=== PATIENT | female | born 1940 | race Caucasian/White ===

== ENCOUNTER → 2023-09-27 07:11 | Outpatient (REF) | payer MEDICARE, OTHER, SELFPAY ==
[2023-09-27 09:58] LABS: Glycohemoglobin (HgbA1c) 8.1 % (4.0-5.6)
[2023-09-27 10:31] LABS: Free T4 1.42 ng/dl (0.78-2.19)
[2023-09-27 10:35] LABS: ALT (SGPT) 26 U/L (0-35); AST (SGOT) 31 U/L (14-36); Albumin 3.9 g/dl (3.5-5.0); Alkaline Phosphatase 115 U/L (38-126); Blood Urea Nitrogen 25 mg/dl (7-17); Calcium 9.7 mg/dl (8.4-10.2); Carbon Dioxide 31 mmol/L (22-30); Chloride 103 mmol/L (98-107); Glucose 128 mg/dl (70-99); HDL Cholesterol 62 mg/dl; LDL Cholesterol, Calculated 76 mg/dl; Potassium 4.8 mmol/L (3.5-5.1); Sodium 138 mmol/L (135-145); Total Bilirubin 0.5 mg/dl (0.2-1.3); Total Cholesterol 149 mg/dl (50-199); Total Protein 6.4 g/dl (6.3-8.2); Triglyceride 57 mg/dl (10-149); Very Low Density Lipoprotein 11 mg/dl (0-30); eGFR > 60.00
[2023-09-27 10:45] LABS: TSH 5.06 uIU/ml (0.47-4.68)
[2023-09-27 11:13] LABS: Microalbumin, Random Urine 1.9 mg/dl (0.6-1.7); Microalbumin/creatinine Ratio 19.1 mg/g
== END ==
LOC: REG 07:11
PROVIDERS: ATTENDING PHYSICIAN Nurse Practitioner Family; FAMILY PHYSICIAN Internal Medicine
DX: E10.9 Type 1 diabetes mellitus without complications (principal)
CPT/HCPCS: 36415; 80053; 80061; 82043; 82570; 83036; 84439; 84443

== ENCOUNTER → 2023-11-25 07:23 | Outpatient (REF) | payer MEDICARE, OTHER, SELFPAY ==
[2023-11-25 09:02] LABS: ALT (SGPT) 23 U/L (0-35); AST (SGOT) 27 U/L (14-36); Albumin 4.2 g/dl (3.5-5.0); Alkaline Phosphatase 100 U/L (38-126); Blood Urea Nitrogen 24 mg/dl (7-17); Calcium 9.7 mg/dl (8.4-10.2); Carbon Dioxide 30 mmol/L (22-30); Chloride 103 mmol/L (98-107); Glucose 152 mg/dl (70-99); HDL Cholesterol 77 mg/dl; LDL Cholesterol, Calculated 64 mg/dl; Potassium 4.2 mmol/L (3.5-5.1); Sodium 137 mmol/L (135-145); Total Bilirubin 0.5 mg/dl (0.2-1.3); Total Cholesterol 151 mg/dl (50-199); Total Protein 6.6 g/dl (6.3-8.2); Triglyceride 54 mg/dl (10-149); Very Low Density Lipoprotein 10 mg/dl (0-30); eGFR > 60.00
[2023-11-25 09:24] LABS: Free T4 1.44 ng/dl (0.78-2.19)
[2023-11-25 09:31] LABS: Glycohemoglobin (HgbA1c) 7.8 % (4.0-5.6)
[2023-11-25 09:38] LABS: TSH 3.13 uIU/ml (0.47-4.68)
[2023-11-25 11:35] LABS: Microalbumin, Random Urine 2.1 mg/dl (0.6-1.7); Microalbumin/creatinine Ratio 18.4 mg/g
== END ==
LOC: REG 07:23
PROVIDERS: ATTENDING PHYSICIAN Internal Medicine Endocrinology, Diabetes & Metabolism; FAMILY PHYSICIAN Nurse Practitioner
DX: E10.9 Type 1 diabetes mellitus without complications (principal); E03.8 Other specified hypothyroidism
CPT/HCPCS: 36415; 80053; 80061; 82043; 82570; 83036; 84439; 84443

== ENCOUNTER → 2024-02-27 07:02 | Outpatient (REF) | payer MEDICARE, OTHER, SELFPAY ==
[2024-02-27 08:14] LABS: ALT (SGPT) 15 U/L (0-35); AST (SGOT) 23 U/L (14-36); Albumin 4.1 g/dl (3.5-5.0); Alkaline Phosphatase 91 U/L (38-126); Blood Urea Nitrogen 24 mg/dl (7-17); Calcium 9.5 mg/dl (8.4-10.2); Carbon Dioxide 30 mmol/L (22-30); Chloride 104 mmol/L (98-107); Glucose 168 mg/dl (70-99); Potassium 4.1 mmol/L (3.5-5.1); Sodium 138 mmol/L (135-145); Total Bilirubin 0.8 mg/dl (0.2-1.3); Total Protein 6.1 g/dl (6.3-8.2); eGFR > 60.00
[2024-02-27 11:12] LABS: Glycohemoglobin (HgbA1c) 7.7 % (4.0-5.6)
== END ==
LOC: REG 07:02
PROVIDERS: ATTENDING PHYSICIAN Internal Medicine Endocrinology, Diabetes & Metabolism; FAMILY PHYSICIAN Nurse Practitioner
DX: E10.9 Type 1 diabetes mellitus without complications (principal)
CPT/HCPCS: 36415; 80053; 83036

== ENCOUNTER → 2024-05-23 15:51 | Outpatient (REF) | payer MEDICARE, OTHER, SELFPAY | LOC: WDC 15:51 | PROVIDERS: ATTENDING PHYSICIAN Nurse Practitioner; FAMILY PHYSICIAN Internal Medicine | DX: Z12.31 Encounter for screening mammogram for malignant neoplasm of breast (principal) | CPT/HCPCS: 77063; 77067 ==

== ENCOUNTER → 2024-08-16 08:33 | Outpatient (REF) | payer MEDICARE, OTHER, SELFPAY ==
[2024-08-16 10:05] LABS: ALT (SGPT) 20 U/L (0-35); AST (SGOT) 26 U/L (14-36); Albumin 3.8 g/dl (3.5-5.0); Alkaline Phosphatase 78 U/L (38-126); Blood Urea Nitrogen 23 mg/dl (7-17); Calcium 8.9 mg/dl (8.4-10.2); Carbon Dioxide 32 mmol/L (22-30); Chloride 101 mmol/L (98-107); Glucose 132 mg/dl (70-99); Sodium 138 mmol/L (135-145); Total Bilirubin 0.7 mg/dl (0.2-1.3); eGFR > 60.00
[2024-08-16 11:15] LABS: Microalbumin, Random Urine 2.8 mg/dl (0.6-1.7); Microalbumin/creatinine Ratio 36.8 mg/g
[2024-08-16 11:28] LABS: Glycohemoglobin (HgbA1c) 7.8 % (4.0-5.6)
== END ==
LOC: REG 08:33
PROVIDERS: ATTENDING PHYSICIAN Internal Medicine Endocrinology, Diabetes & Metabolism; FAMILY PHYSICIAN Nurse Practitioner
DX: E10.9 Type 1 diabetes mellitus without complications (principal); E03.8 Other specified hypothyroidism
CPT/HCPCS: 36415; 80053; 82043; 82570; 83036

== ENCOUNTER → 2024-08-21 11:30 | Outpatient (REF) | payer MEDICARE, OTHER, SELFPAY ==
--- NOTE | 2024-08-21 12:38 | PN.DE.MGMTRT ---
Insulin Management
- -
08/21/2024 Diabetes Management for Insulin pump
Patient referred by Dr. Chiquita Do for insulin pump assessment and management. Anusha is known to me from previous visits. She has type 1 diabetes and is currently using the tandem tslim x2 pump with [employer] XC infusion sets, Novolog and
DexCom G6.
Current A1C 7.8%, cr .7, eGFR > 60.
Current pump settings
basal I:CHO sensitivity target
12am .325 12 50 130
4am .325 12 50 130
7am .5 11 50 130
11am .55 11 50 130
1pm .6 11 50 130
24 hour basal total 11 units.
Anusha admits she has not been bolusing before meals, she usually waits till she is done her meal then takes a bolus. Advised to at least bolus for initial food and if she decides to eat additional food to take a second bolus. She agrees; states
she used to do that but 'got away from it because she wasn't sure how much she would eat'. She states she often will have a low blood sugar in the evening, after dinner before bedtime. She is not sure if this is because she over boluses for the
meal. Will trend glucose before dinner and every 2 hours after dinner to determine if basal or bolus need adjustments.
I examined her infusion sites there are no signs of lipohypertrophy or atrophy.
She admits she is very stressed, has daughter, her son and his girlfriend with a new born baby living with her. Relationship is strained and they very often will not allow her to see the baby. I reminded her stress will affect glucose, she was
very tearful and upset.
We will have a follow up call on Sunday 08/27 to review glucose results.
Diabetes History
- -
Type of Diabetes: 1
Pre-Admission Diabetes Regimen
Insulin Pump Settings
IP Diabetes Regimen
Patient Education
== END ==
LOC: DES 11:30
PROVIDERS: ATTENDING PHYSICIAN Internal Medicine Endocrinology, Diabetes & Metabolism
DX: E10.9 Type 1 diabetes mellitus without complications (principal)
CPT/HCPCS: 99078

== ENCOUNTER 2024-10-21 00:22 | Emergency (ER) | payer MEDICARE, OTHER, SELFPAY ==
[2024-10-21 00:26] VITALS: BP 188/88
--- NOTE | 2024-10-21 00:55 | ED.GENMED ---
History of Present Illness
General
Chief Complaint: Swelling
Time Seen by Provider: 10/21/24 00:41
History of Present Illness
History of Present Illness:
Patient presents to the emergency department with right lower extremity calf swelling. Symptoms started over the past day. She notes that she had a cortisone injection in the knee recently for knee pain. Over the past couple of days she does note
that she had some swelling and pain in the knee and felt a pinch denied before the calf became swollen
Past History
Past History
ED Past Medical History: Cancer (Skin CA), HTN, Hypercholesterolemia, IDDM, Hypothyroidism and Other (Arthritis, TIA, Diverticulitis, Glaucoma, Anemia, )
ED Past Surgical History: Appendectomy, Gynecological (D&C), Orthopedic (Left knee replacement) and Other (Ankush cataracts)
Social History
Tobacco: Former smoker
Alcohol: Occasional
Personal:
Living: alone
Employment: Retired
Phy Exam
Physical Exam
Physical Exam:
General: No acute distress
Head: NCAT
Neck, Normal in appearance, no swelling
Respiratory: No Respiratory distress
Abdomen: No distension
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 She has bilateral varicose veins in the lower extremities left side worse than right. Her right lower extremity does have some pitting edema from the knee down into the ankle and foot.
There are palpable pedal pulses. Sensation intact to light touch throughout. 5 out of 5 dorsi flexion and plantarflexion. So testing is negative. There is no significant joint effusion.
Neuro: CESPEDES, AOx4
Psych: Normal affect
Skin: Normal color
Scores
Heart Failure Risk
Heart Failure Risk Score: Not Applicable
Course
Orders/Labs/Results
Orders:
Orders
10/21/24 00:54
US Periph Venous LOWER Ext RT Urgent
Comment:
Reason For Exam: rule out dvt
10/21/24 01:18
CR Knee- Right 4 Or More View* Urgent
Comment:
Reason For Exam: knee pain
Abnormal Lab Results
10/21/24
01:21
POC Glucose 347 H mg/dl
(70-99)
Vital Signs
Initial and Last Documented VS:
Initial Vital Signs
Temp Pulse Resp BP Pulse Ox
98.1 F 74 20 188/88 100
10/21/24 00:26 10/21/24 00:26 10/21/24 00:26 10/21/24 00:26 10/21/24 00:26
Last Documented Vital Signs
Temp Pulse Resp BP Pulse Ox
98.1 F 68 17 168/64 98
10/21/24 00:26 10/21/24 01:46 10/21/24 01:46 10/21/24 01:30 10/21/24 01:46
*Critical Care Note
Total Time (30-74mins, 75-104mins- exclusive of procedures): Not Applicable
ED Attending Note
ED Attending Note
ED Attending Note:
patient with RLE swelling after corticosteroid injection to R knee. Will xray for injury and US to rule out DVT
Patient signed out pending imaging studies
-
Portions of this chart may have been created with voice recognition software.� Occasional wrong word or��sound alike� substitutions may have occurred due to the inherent limitations of voice recognition software.
Discharge Plan
Departure
Prescriptions:
No Action
levothyroxine 175 MCG tablet
175 mcg PO DAILY
ascorbic acid (vitamin C) [Vitamin C] 500 MG tablet
1,000 mg PO DAILY
Systane Balance 10 ML drops
1 drp BOTH EYES DAILY
multivitamin with folic acid [Tab-A-Jaz] 1 TABLET tablet
1 tab PO DAILY
clopidogrel 75 MG tablet
75 mg PO DAILY Qty: 30 0RF
betamethasone valerate 15 GM ointment
1 applic topical BIDPRN PRN (Reason: RASH ON BACK)
lisinopril 10 MG tablet
10 mg PO DAILY
estradiol 1 APPLIC cream
1 applic vaginal DAILYPRN PRN (Reason: DRYNESS)
rosuvastatin 20 MG tablet
20 mg PO DAILY
Insulin Pump [Patient's Own Insulin Pump:] 1 UNITS Pump.Resvr
1 dose SC .CONTINUOUS
Patient Comments:
11/04/21 PER PATIENT/[facility] PATIENT USES NOVOLOG INSULIN- GIVES HERSELF BOLUS WITH MEALS UNSURE OF HER BASAL RATE
Prevagen
1 cap PO DAILY
mupirocin 2 % ointment
1 applic topical BID Qty: 1 0RF
Patient Comments:
started treatment on monday01/16/23 and was taking BID last took at home 01/18/23 at 0600
famotidine 20 mg tablet
20 mg PO HS Qty: 30 0RF
doxycycline hyclate 100 mg capsule
100 mg PO BID Qty: 10 0RF
Rx Instructions:
take with food and probiotic
tramadol 50 mg tablet
50 mg PO TID Qty: 30 0RF
Rx Instructions:
Dx Orthopedic surgery
Ongoing therapy
post-op
gabapentin 300 mg capsule
300 mg PO HS Qty: 10 0RF
sennosides [Senokot] 8.6 mg tablet
17.2 mg PO BID Qty: 2 0RF
aspirin 325 mg tablet
325 mg PO DAILY Qty: 1 0RF
Rx Instructions:
Take with food
docusate sodium [Colace] 100 mg capsule
100 mg PO BID Qty: 1 0RF
Saccharomyces boulardii [Florastor] 250 mg capsule
250 mg PO BID Qty: 1 0RF
acetaminophen [Tylenol] 325 mg capsule
650 mg PO QID Qty: 2 0RF
oxycodone 5 mg tablet
5 - 10 mg PO Q6HPRN PRN (Reason: 1 tab moderate-2 tabs severe pain) Qty: 30 0RF
Rx Instructions:
Dx surgery
ongoing therapy
Post-op use
doxycycline hyclate 100 mg capsule
100 mg PO BID Qty: 20 0RF
Referrals:
Karen Ram CRNP [Family Provider] -
Interventions
Interventions:
*Risk Screen - Suicide Last Done: 10/21/24 00:26
*Neglect/Abuse Screening Last Done: 10/21/24 00:26
Discharge Date and Time
Print Language: CHINESE
[2024-10-21 01:23] LABS: Glucose - Point of Care 347 mg/dl (70-99)
[2024-10-21 01:30] VITALS: BP 168/64
[2024-10-21 01:46] VITALS: BMI 23.1
[2024-10-21 02:40] VITALS: BP 190/62
== END 2024-10-21 03:49 | disposition home or self-care (01) ==
LOC: EMR 00:22
PROVIDERS: EMERGENCY PHYSICIAN Emergency Medicine; FAMILY PHYSICIAN Nurse Practitioner
DX: R22.41 Localized swelling, mass and lump, right lower limb (principal); E03.9 Hypothyroidism, unspecified; E11.9 Type 2 diabetes mellitus without complications; E78.00 Pure hypercholesterolemia, unspecified; I10 Essential (primary) hypertension; Z79.4 Long term (current) use of insulin; Z85.828 Personal history of other malignant neoplasm of skin; Z86.73 Personal history of transient ischemic attack (TIA), and cerebral infarction without residual deficits; Z87.891 Personal history of nicotine dependence; Z90.49 Acquired absence of other specified parts of digestive tract; Z96.652 Presence of left artificial knee joint; Z79.899 Other long term (current) drug therapy
CPT/HCPCS: 99284; 73564; 82962; 93971

== ENCOUNTER → 2024-11-22 06:56 | Outpatient (REF) | payer MEDICARE, OTHER, SELFPAY | LOC: PAVMRI 06:56 | PROVIDERS: ATTENDING PHYSICIAN Physician Assistant; FAMILY PHYSICIAN Nurse Practitioner | DX: M25.561 Pain in right knee (principal) | CPT/HCPCS: 73721 ==

== ENCOUNTER 2024-11-23 16:10 | Inpatient (IN) | payer MEDICARE, OTHER, SELFPAY ==
[2024-11-23] VITALS (10 sets, daily range): BP systolic 101–148; BP diastolic 45–62; BMI 22.6; BMI 21.8
[2024-11-23 14:00] LABS: % Basophils 0.3 % (0-2); % Eosinophils 0.1 % (0-6); % Immature Granulocytes 0.5 % (0-0.5); % Lymphocytes 3.2 % (20.5-51.1); % Monocytes 8.2 % (1.7-9.3); % Neutrophils 87.7 % (42.2-75.2); Absolute Immature Granulocytes 0.1 10^3/uL (0-0.05); Absolute Lymphocytes 0.4 10^3/uL (1.2-3.4); Absolute Monocytes 1.1 10^3/uL (0.1-0.6); Absolute Neutrophils 11.9 10^3/uL (1.4-6.5); Hematocrit 33.2 % (37.0-47.0); Hemoglobin 11.2 g/dL (12.0-16.0); Mean Corp Hgb Conc. 33.7 g/dL (33.0-37.0); Mean Corpuscular Hgb 29.9 pg (27.0-31.0); Mean Corpuscular Volume 88.8 fL (81.0-99.0); Mean Platelet Volume 9.5 fL (7.4-10.4); Nucleated Red Blood Cells % 0 %; Platelet Count 211 10^3/uL (130-400); Red Blood Cell Count 3.74 10^6/uL (4.20-5.40); Red Cell Dist. Width 13.3 % (11.5-14.5); White Blood Cell Count 13.6 10^3/uL (4.8-10.8)
[2024-11-23 14:02] LABS: Venous Blood Gas B.E. -5.4 mmol/L (-4 to +4); Venous Blood Gas HCO3 20.6 mmol/L (22-27); Venous Blood Gas O2 Sat % 99.8 %; Venous Blood Gas pCO2 41 mmHg (35-48); Venous Blood Gas pH 7.31 (7.32-7.43); Venous Blood Gas pO2 124 mmHg (30-50)
[2024-11-23 14:22] LABS: ALT (SGPT) 26 U/L (0-35); AST (SGOT) 33 U/L (14-36); Albumin 3.7 g/dl (3.5-5.0); Alkaline Phosphatase 124 U/L (38-126); B-Hydroxybutyrate 1.73 mmol/L (0.02-0.27); Blood Urea Nitrogen 34 mg/dl (7-17); Calcium 9.5 mg/dl (8.4-10.2); Carbon Dioxide 20 mmol/L (22-30); Chloride 103 mmol/L (98-107); Estimated Creatinine Clearance 46 ml/min; Glucose 490 mg/dl (70-99); Potassium 5.2 mmol/L (3.5-5.1); Sodium 139 mmol/L (135-145); Total Bilirubin 1.1 mg/dl (0.2-1.3); Total Protein 5.6 g/dl (6.3-8.2); eGFR > 60.00
--- NOTE | 2024-11-23 14:44 | ED.GENMED ---
History of Present Illness
General
Chief Complaint: Blood Sugar Problem
Source: patient, records and ambulance crew
Time Seen by Provider: 11/23/24 14:26
History of Present Illness
History of Present Illness:
83-year-old female with past medical history of type 1 diabetes, hypertension, hyperlipidemia, previous TIA presenting to the emergency department via EMS from home where family reportedly found patient significantly hyperglycemic, felt to be
related to insulin pump malfunction, patient stating to me she just does not feel very well. Patient states she believes the symptoms started last night into this morning. She is currently denying any headaches, focal weakness or numbness, chest
pain or shortness of breath, abdominal pain, nausea, vomiting. EMS reports that family gave 10 units of insulin prior to arrival and EMS did provide patient with some Zofran and approximately 200 mL of normal saline solution. Fingerstick on
arrival was 450. At time of my exam history is somewhat limited from the patient as she is intermittently falling asleep during the exam.
Past History
Past History
ED Past Medical History: Cancer (Skin CA), HTN, Hypercholesterolemia, IDDM, Hypothyroidism and Other (Arthritis, TIA, Diverticulitis, Glaucoma, Anemia, )
ED Past Surgical History: Appendectomy, Gynecological (D&C), Orthopedic (Left knee replacement) and Other (Ankush cataracts)
Social History
Tobacco: Former smoker
Alcohol: Occasional
Drug: None
Personal:
Living: alone
Employment: Retired
Review of Systems
Review of Systems
All Other Systems: ROS reviewed and negative except as documented in HPI and ROS
Phy Exam
Physical Exam
Physical Exam:
GENERAL: Alert , in no apparent distress, somewhat pale, ill-appearing
HEAD: Normocephalic atraumatic
EYE: clear conjunctiva
NECK: Supple
ENT: o/p clr, dry mucous membranes
CARDIAC: Regular rate and rhythm
LUNGS: Clear breath sounds bilaterally, no acute respiratory distress, no wheezes/rales/rhonchi
ABDOMEN: Soft, without focal tenderness, no r/g, no cvat
NEUROLOGICAL: Alert and oriented
SKIN: Warm and dry, skin intact.
MUSCULOSKELETAL: No edema, well perfused.
PSYCH: Normal and appropriate interaction.
Scores
Heart Failure Risk
Heart Failure Risk Score: Not Applicable
Heart Score for Chest Pain Patients
STEMI patient?: Not applicable
Withdrawal Assessment of Alcohol
Withdrawal Assessment Completed?: Not applicable
Course
Orders/Labs/Results
Orders:
Orders
11/23/24 13:49
B-Hydroxybutyrate Urgent
CBC/With Diff [Complete Blood Count/With Diff] Urgent
Comprehensive Metabolic Panel Urgent
Free T4 Urgent
Lactic Acid Urgent
TSH Reflex To Free T4 Urgent
Comment: ADDON
Venous Blood Gas Urgent
%Oxygen/Room Air: 94
11/23/24 14:34
Bedside Glucose- Treatment Q1H
IV Insert/Care/Rem.- Treatment PRN
0.9% Sodium Chloride 1000 ml [Nss] 1,000 ml IV BOLUS
0.9% Sodium Chloride 1000 ml [Nss] 1,000 ml IV BOLUS
Insulin Human Regular [Novolin R] 6 units IV NOW STA
11/23/24 14:48
Electrocardiogram (*1) Urgent
Reason for Study: QTc Monitoring
EKG- Treatment ONCE
11/23/24 Dinner
Full Liquids
At Your Request: Full Participation
Comment: advance diet as tolerated
11/23/24 15:13
Reg Insulin 100 Units/100 ml [Novolin R Insulin Infusion] 100 units in 100 ml IV NOW
11/23/24 15:41
Ondansetron Injectable [Zofran] 4 mg IV NOW STA
Ondansetron Injectable [Zofran] 4 mg IV Q6HPRN PRN
11/23/24 15:42
Admit/Transfer Patient As Directed
Co-Sign Provider:
Level of Care: Inpatient admission
Assign to:: IMU- Intermediate Care
Physician / Group: adriana gaston
Diagnosis: dka symptomatic Nausea/V/D, lactic acidosis, leukocytosis unclear, hypoxia
Reason for Hospitalization: dka symptomatic Nausea/V/D, lactic acidosis, leukocytosis unclear, hypoxia
Expected length of stay greater than two midnights?: Yes
ELOS- Estimated Length of Stay in days: 5
I certify the patient meets the requirements for IP care: Yes
Code Status As Directed
Resuscitation Status: Do not resuscitate
Reached after discussion with pt or family/Healthcare POA: Yes
Based on pt advanced directive or healthcare POA form: Yes
Decision communicated with: Per daughter Melissa Foreman medical POA, daughter Cassandra at bedside agrees
DNR Bracelet Application ONCE
11/23/24 15:47
PRN Pain Medication Management As Directed
May give lesser potent ordered pain med per pt: Yes
preference::
Protocol:: Medication orders for pain may be administered in a
manner that supports deferring to patient preference
when the pt is:
- Requesting an ordered lesser potent pain medication.
Least to most potent pain medications are defined
as: acetaminophen < NSAID < tramadol < opioids
(morphine, oxycodone, hydromorphone).
- Requesting a lesser dose of the same medication IF
ORDERED.
- Requesting a less intrusive route of administration
if both routes are prescribed by the provider (PO <
IV).
11/23/24 15:49
Straight Cath As Directed
Frequency: One time now
CR Chest Portable - 1 View Urgent
Comment:
Reason For Exam: Hypoxia
Reason Study Needs to be Portable: Patient Unstable
11/23/24 16:00
Add On- LAB Urgent
Tests Added?: TSH with free T4 reflex
11/23/24 16:06
Reg Insulin 100 Units/100 ml [Novolin R Insulin Infusion] 100 units in 100 ml IV PER PROTOCOL
Initial dose in units/hr, then titrate:: 6
11/23/24 16:06
Bedside Glucose Monitoring As Directed
Frequency: AC&HS
11/23/24 16:23
Basic Metabolic Panel Q2H
COVID-19 Antigen Urgent
Source: Nasal Swab
Blood Culture Q30M
CASANDRA Source: Blood/Venous
Specimen Description:
Blood Culture Q30M
CASANDRA Source: Blood/Venous
Specimen Description:
Influenza A+B Rapid Molecular Urgent
CASANDRA Source: Nasal Swab
Specimen Description:
11/23/24 16:58
Urinalysis Reflex To Culture Urgent
Date Specimen was Collected: 11/23/24
Time Specimen was Collected: 16:53
11/23/24 19:04
Basic Metabolic Panel Q2H
11/23/24 20:53
Acetaminophen [Tylenol] 650 mg PO Q4HPRN PRN
Enoxaparin Sodium [Lovenox] 40 mg SC QPM
Quetiapine Fumarate [Seroquel] 12.5 mg PO Q6H PRN
11/23/24 20:53
Diabetes Education Consult Routine
Reason for Consult: Insulin Instruction
Other reason for consult: Monitor instructions for patient and family
Newly Diagnosed?: No
Monitor Needed?: No
Diabetes Management by Nurse Practitioner Routine
Consulting Provider: Jenny Martin
Was provider already notified?: No
Reason for Consult: Insulin Management
Date consulting provider notified: 11/25/24
Time consulting provider notified: 07:33
Notified:: Provider
Activity As Directed
Activity Level: With Assistance
Intake/ Output As Directed
Frequency: Per unit guidelines
Notify MD As Directed
Notify physician if: Nurse to contact provider when glucose reaches 250 to obtain orders for D5 0.45 NaCl
Vital Signs As Directed
Frequency: Per unit guidelines
Ot Eval And Treat Routine
Treatment: BCAT assessment
DX Deep Vein Thrombosis Video Routine
11/24/24 04:26
Basic Metabolic Panel Q4
Complete Blood Count/With Diff IN AM
11/24/24 06:00
Levothyroxine [Synthroid] 175 mcg PO DAILY@0600
11/24/24 08:00
Clopidogrel Bisulfate [Plavix] 75 mg PO DAILY
Lisinopril [Zestril] 10 mg PO DAILY
Rosuvastatin Calcium [Crestor] 20 mg PO DAILY
11/24/24 08:10
Basic Metabolic Panel Q4
11/24/24 12:07
Basic Metabolic Panel Q4
11/24/24 16:48
Basic Metabolic Panel Q4
11/25/24 04:43
Complete Blood Count/With Diff IN AM
11/26/24 06:00
Complete Blood Count/With Diff IN AM
11/27/24 06:00
Complete Blood Count/With Diff IN AM
11/28/24 06:00
Complete Blood Count/With Diff IN AM
Abnormal Lab Results
11/23/24 11/23/24
13:49 15:50
WBC 13.6 H 10^3/uL
(4.8-10.8)
RBC 3.74 L 10^6/uL
(4.20-5.40)
Hgb 11.2 L g/dL
(12.0-16.0)
Hct 33.2 L %
(37.0-47.0)
Abs Immat Gran (auto) 0.1 H 10^3/uL
(0-0.05)
Absolute Neuts (auto) 11.9 H 10^3/uL
(1.4-6.5)
Absolute Lymphs (auto) 0.4 L 10^3/uL
(1.2-3.4)
Absolute Monos (auto) 1.1 H 10^3/uL
(0.1-0.6)
Neutrophils % 87.7 H %
(42.2-75.2)
Lymphocytes % 3.2 L %
(20.5-51.1)
VBG pH 7.31 L
(7.32-7.43)
VBG pO2 124 H mmHg
(30-50)
VBG HCO3 20.6 L mmol/L
(22-27)
Potassium 5.2 H mmol/L
(3.5-5.1)
Carbon Dioxide 20 L mmol/L
(22-30)
BUN 34 H mg/dl
(7-17)
Glucose 490 H* mg/dl
(70-99)
Lactic Acid 4.0 H* mmol/L
(0.7-2.0)
Total Protein 5.6 L g/dl
(6.3-8.2)
TSH (Reflex) 0.02 L uIU/ml
(0.47-4.68)
Free T4 5.54 H ng/dl
(0.78-2.19)
B-Hydroxybutyrate 1.73 H mmol/L
(0.02-0.27)
POC Glucose 403 H mg/dl
(70-99)
11/23/24 13:49
11/23/24 13:49
Vital Signs
Initial and Last Documented VS:
Initial Vital Signs
Temp Pulse Resp BP Pulse Ox
98.4 F 98 20 148/61 95
11/23/24 13:41 11/23/24 13:41 11/23/24 13:41 11/23/24 13:41 11/23/24 13:41
Last Documented Vital Signs
Temp Pulse Resp BP Pulse Ox
98.1 F 59 14 147/60 94
11/25/24 07:30 11/25/24 08:35 11/25/24 08:00 11/25/24 08:35 11/25/24 08:34
Harvest Supervisor consulted with Physician
Harvest Supervisor consulted with physician?: Yes
Name of Physician Consulted: Dr. Thomas
MDM/Problems Addressed
Differential Diagnosis Includes:
DKA, HHNK, hyperglycemia without acidosis, less concern for infection as cause of hyperglycemia, mechanical malfunction of insulin pump
MDM/Problems Addressed:
83-year-old female presenting to the ER with concerns for diabetic complication, patient with severe hyperglycemia at home, appears altered and very sleepy here. Fingerstick glucose greater than 450. Based off presentation I have significant
concern for DKA. Labs initiated on arrival. Patient to be treated with fluids while awaiting blood work. Anticipate admission.
Chronic conditions affecting care: DM
Acute Exacerbation and/or Progression of Chronic Illness: DM
*Pulse Oximetry
Patient hypoxic: no
*Forge Shop Supervisor Interpretation
Rate: normal
Rhythm: sinus
*Critical Care Note
Total Time (30-74mins, 75-104mins- exclusive of procedures): 30
comment:
Critical care statement: A total of 30 minutes of critical care time was provided for this patient. This includes management of unstable vital signs, evaluation of the patient at bedside, reviewing the patient's pertinent medical records, discussion
with consultants, review of old EKGs and review of pertinent medical records. This time with separate from time utilized to perform the aforementioned documented procedures
Data Reviewed
Review of Other/Old Records Reveals: Labs and Records
Patient Management
Discussion with other providers: Hospitalist
Escalation/DeEscalation of care consider admission/obs:
Patient's labs reveal a leukocytosis of 13,000 which I suspect is likely reactive and not related to an acute infectious process. She has a lactic acidosis of 4, bicarb of 20 and an anion gap of 16. Beta hydroxybutyrate is 1.7 and patient has a pH
of 7.31. I have significant concern for DKA. DKA protocol initiated. Hospitalist team notified. Patient currently protecting her airway and not indicated for intubation. Patient will need ICU level of care.
ED Attending Note
-
Portions of this chart may have been created with voice recognition software.� Occasional wrong word or��sound alike� substitutions may have occurred due to the inherent limitations of voice recognition software.
Discharge Plan
Departure
Patient Disposition: Admit
Date of Disposition: 11/23/24
Time of Disposition: 14:44
Presentation/result/management discussed w/ accepting MD/DO: Hospitalist
Discharge Problem:
DKA (diabetic ketoacidosis)
Interventions
Interventions:
*Risk Screen - Suicide Last Done: 11/23/24 21:20
*General Assessment Last Done: 11/23/24 13:51
*Neglect/Abuse Screening Last Done: 11/23/24 13:51
*ED- Fall Risk Assessment Last Done: 11/23/24 13:51
*ED COVID-19 Vaccine History Last Done: 11/23/24 13:50
*Nursing Disposition Last Done: 11/23/24 21:00
ED- Neurological Assessment Last Done: 11/23/24 13:51
Discharge Date and Time
Discharge Date/Time: 11/23/24 21:00
--- NOTE | 2024-11-23 14:59 | HPS.HSE ---
Family Physician
-
Family Physician: Karley Noe
Chief Complaint
-
Hyperglycemia malfunctioning pump, nausea vomiting diarrhea since middle of night
History of Present Illness
80-year-old female on an insulin pump for type 1 diabetes since age 36 with blood sugar at home 550 patient was worried her blood glucometer was malfunctioning. The patient reports not feeling well she reports feeling tired, increased thirst,
nausea, vomiting, diarrhea throughout the night. Her daughter saw her normal at 1 AM. She has a chronic insulin pump tandem type II that her daughter is not aware how to use. Her daughter states she does have history of low blood sugar for which
she gives orange juice and has been having lows recently however over the past 12 hours her blood sugar level has been reading high on her pump and glucometer. The patient denies headache, blurred vision, dry mouth, chest pain, palpitations, cough,
shortness of breath, abdominal pain, nausea, vomiting, diarrhea, urinary symptoms. She received 10 units of insulin given by family prior to EMS arrival. She did receive Zofran en route to the hospital with 200 cc of NSS. She was hypoxic at 83 to
86% on room air I placed her on 2 L nasal cannula with pulse ox improving to 93%. She had prior admission for DKA in October 2021 due to malfunctioning pump with catheter kinked. She lives with her daughter Cassandra who states along with her daughter
Melissa POA that their mother has had a progressive cognitive decline since 2022 she is still driving but gets lost forgets how to use the steering wheel forgets how to use the microwave, computer, multiple items in the house. She refuses to get a
cognitive assessment however they are going to follow-up with her PCP to try to get mood stabilizing medications as she becomes very agitated yelling and screaming. Her daughter Melissa is medical and financial POA and is working on getting those
filed with her leiva to take over the bills due to the mother's decline and inability to manage.
She has past medical history of type I IDDM, diabetic retinopathy wears glasses, nocturia, undiagnosed cognitive impairment since 2022, HTN, HLD, arthritis, former smoker, hypothyroidism, ASVD/TIA 2020 no confirmed
stroke,Diverticulosis/diverticulitis,Glaucoma,Anemia,History of skin cancer,Hx COVID
Medical History
Past Medical History
Past Medical History: Reports Other
Additional Past Medical History:
Moderate cognitive impairment with behavioral agitation screams yells per family since 2022 refuses to be assessed
DKA in October 2021 due to malfunctioning pump with catheter kinked.
type I IDDM
Diabetic retinopathy wears reading glasses
Nocturia
HTN
HLD
arthritis
former smoker
Hypothyroidism
TIA 2020 no stroke confirmed by MRI
Diverticulosis/diverticulitis
Glaucoma
Anemia
History of skin cancer
Hx COVID
Past Surgical History: Reports Other
Additional Past Surgical History:
Appendectomy
D&Cs
Bilateral cataract extraction
Glaucoma with Angle surgery
Left knee replacement
Social History
Tobacco: Non-smoker
Alcohol: None
Drug: None
Personal: Single
Living: With Family (Daughter Cassandra)
Employment: Retired
Family History
Family History: Other (Mother history CVA age 70, father history CT, pacemaker age 80s)
Allergies / Home Medications
Allergies reflects when Allergies were last updated in [facility].
Home Medications with original date entered in [employer]
Allergy/Medication List:
Allergies
Allergy/AdvReac Type Severity Reaction Status Date / Time
Cephalosporins Allergy Unknown Pt Verified 10/21/24 00:29
allergic
to
Penicillin.
Allergy
listed as
a
precaution.
Sulfa (Sulfonamide Allergy Unknown Rash Verified 10/21/24 00:29
Antibiotics)
Penicillins Allergy Hives Verified 10/21/24 00:29
Home Medications
levothyroxine 175 mcg tablet 175 mcg PO DAILY Thyroid 12/19/13
Insulin Pump [Patient's Own Insulin Pump:] 1 dose SC .CONTINUOUS Diabetes 11/04/21
lisinopril 10 mg tablet 10 mg PO DAILY Blood pressure 11/04/21
rosuvastatin 20 mg tablet 20 mg PO DAILY High cholesterol 11/04/21
clopidogrel 75 mg tablet (Plavix) 75 mg PO DAILY 11/23/24
Review of Systems
-
History Source: Patient and Family (Daughters Melissa and Cassandra)
A 12 point ROS was completed and negative except as noted: Yes
Constitutional: Reports Fatigue; Denies Fever or Chills
EENT: Denies Sore Throat or Runny Nose
Respiratory: Denies Cough or Trouble Breathing
Cardiac: Denies Chest Pain, Diaphoresis or Syncope
Abdomen/GI: Reports Nausea, Vomiting and Diarrhea; Denies Abdominal Pain, Constipated or Bloody Stools
: Reports Frequency; Denies Dysuria, Flank Pain, Incontinence, Difficulty Voiding or Urgency
Musculoskeletal: Denies Joint Pain or Edema
Skin: Denies Itching or Rash
Neurological: Reports Weakness (Generalized); Denies Dizzy or Headache
Endocrine: Reports Polyuria
Psych: Reports Calm (But currently sleeping due to elevated blood sugar)
Physical Exam
Vital Signs
Vital Signs
Temp Pulse Resp BP Pulse Ox
98.4 F 98 20 148/61 95
11/23/24 13:41 11/23/24 13:41 11/23/24 13:41 11/23/24 13:41 11/23/24 13:41
Physical Exam
General: Other (Patient currently extremely lethargic due to elevated blood sugars does open eyes to name and will answer review of systems with eyes closed); No Pain or Fever
HEENT: NormoCephalic, Anicteric, PERRLA, [place] Conjunctivae, No Ptosis and Other (Dry oral mucosa)
Respiratory: Clear; No Wheezes, Rales or Rhonchi
Cardiac: S1/S2 and Regular Rhythm; No Murmur, Rub, Gallop or Peripheral Edema
Breast: Deferred by me
GI: Soft, Non Tender, Non Distended, Normal Bowel Sounds and No Hepatosplenomegaly
Rectal: Deferred by Provider
Genito-urinary: Deferred by me
Musculoskeletal: No Clubbing, No Cyanosis and No Edema
Skin: Warm and Dry; No Rash
Neuro: Other ( )
Laboratory Results
-
11/23/24 13:49
Laboratory Results
Lactic Acid 4.0 mmol/L (0.7-2.0) H* 11/23/24 13:49
Total Bilirubin 1.1 mg/dl (0.2-1.3) 11/23/24 13:49
AST 33 U/L (14-36) 11/23/24 13:49
ALT 26 U/L (0-35) 11/23/24 13:49
Alkaline Phosphatase 124 U/L (38-126) 11/23/24 13:49
Impression/Plan
-
Impression/plan:
Admit to IMU
#DKA/insulin-dependent IDDM type I concern insulin pump malfunction-symptomatic with nausea vomiting diarrhea
#Diabetic retinopathy wears reading glasses
#History of pump malfunction October 2021 due to bent catheter
# Hx nocturia
Patient was given rapid acting 10 units subcu insulin by family prior to arrival
Blood sugar at home 550 here 490, anion gap 16
B hydroxy 1.73
-No recent antibiotics diarrhea thought to be related to DKA
- Remove insulin pump
- Check HgbA1c
- IV insulin drip
- IV fluids NSS with 20 KCl 250 cc/h
-IV Zofran as needed
- Accu-Cheks every 1 hours while on insulin
- Diabetic GLOBAL PROFESSIONAL, diabetic education
Lactic acidosis due to DKA
Lactic acid 4 will trend, VBG pH 7.31
#Acute leukocytosis with hypoxia unclear possibly reactive versus underlying pneumonia versus COPD
#Acute hypoxic respiratory insufficiency likely secondary to COPD
#History of moderate COPD per chest x-ray
hypoxic at 83 to 86% on room air I placed her on 2 L nasal cannula with pulse ox improving to 93
WBC 13.6 with left shift, afebrile 98.4, HR 98, 148/61
- Check urinalysis with culture reflex
- Continue 2 L nasal cannula oxygen
- COVID, influenza-negative
CXR 1. moderate bilateral lung hyperinflation suggesting chronic obstructive pulmonary disease (COPD).
2. 1.0 cm nodular opacity in the peripheral right midlung. Diagnostic possibilities are (1) lung cancer or (2) an infectious or inflammatory pulmonary nodule.
3. Mild subpleural scarring in both lower lungs.
#Hx NEW 1 cm nodular opacity right midlung
- Recommend follow-up outpatient pulmonology given prior history of smoker
#Cognitive impairment with reported history of severe agitation yell and scream�mild not tested
Family to follow-up with PCP to attempt to get agitation medication and formal diagnosis
-Consult OT for BCAT
-Seroquel 12.5 mg as needed agitation
#HTN�benign
BP 148/61
- Continue lisinopril 10 mg with hold parameters
#Hypothyroidism
- Continue levothyroxine 175 mcg p.o. daily
Check TSH with free T4 reflex-recommend repeat thyroid function studies in 6 weeks given DKA possibly false results TSH 0.02, free T5.54
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
Prior evaluation included negative MRI no confirmed stroke
- Continue Plavix 75 mg daily
# HLD
- Continue Crestor
Other PMH:
Former smoker
Diverticulosis/diverticulitis
Glaucoma-history of open angle glaucoma surgery
Normocytic anemia�Hgb 11.2
History of skin cancer
Hx COVID
DVT prophylaxis
Subcu Lovenox
DNR per daughter ESTRELLA Pichardo with daughter Cassandra Naranjo at bedside
--- NOTE | 2024-11-23 15:03 | W.PN.UPDATE ---
Update Note
Progress Note Update
I could not get any information from the patient due to lethargy
Information gathered by chart review and speaking with the ER staff and family
This note serves as an addendum to the H&P by loan coordinator PAUL
Karen MORALES
HPI
83F from home with family Former smoker, HX DKA, IDDM on insulin pump, HX DKA, Hypothyroid, HLD, HTN , TIA seen at ER
- [facility] from home where family reportedly found patient significantly hyperglycemic
- felt to be related to insulin pump malfunction
- report felt unwell since last night into this morning.
- EMS reports that family gave 10 units of insulin prior to arrival and EMS did provide patient with some Zofran and approximately 200 mL of normal saline solution. Fingerstick on arrival was 450.
- currently denying any headaches, focal weakness or numbness, chest pain or shortness of breath, abdominal pain, nausea, vomiting.
ER Tx:
Insulin gtt
IV KCL 20
NS 2 L
VS
11/23/24
13:41
Temp 98.4 F
Pulse 98
Resp Rate 20
Blood pressure 148/61
SaO2 95
Reviewed VS:
PE
somewhat limited from the patient as she is intermittently falling asleep during the exam.
Gen: Not toxic , NAD
HEENT: dry OM
Neck: supple
Lungs: symmetric AE
Cor: RRR S1 S2
Abdomen: oft, without focal tenderness,
ACCOUNT REVIEW SPECIALIST: Alert and oriented
MS: no edema
Psych: Normal and appropriate interaction.
Labs
11/23/24
13:49
WBC 13.6 H
Hgb 11.2 L
Plt Count 211
Neutrophils % 87.7 H
VBG pH 7.31 L
VBG pCO2 41
VBG pO2 124 H
VBG HCO3 20.6 L
Sodium 139
Potassium 5.2 H
Chloride 103
Carbon Dioxide 20 L
Creatinine 0.9
eGFR > 60.00
Lactic Acid 4.0 H*
B-Hydroxybutyrate 1.73 H
Last hospitalist admission:
DATE OF ADMISSION: 11/25/2021 - DATE OF DISCHARGE: 11/26/2021
FINAL DIAGNOSIS:
1. Diabetic ketoacidosis.
2. Insulin pump malfunction related to line/needle.
3. Hyperlipidemia.
4. Hypothyroidism.
5. Type 1 insulin-dependent diabetes mellitus
ASSESSMENT & PLAN
DKA /Hyperglycemic crisis 2/2 insulin pump malfunction
Associated with lethargic TME
- POS lactic acidosis of 4, pH of 7.31
- AG MA 16
- POS Beta hydroxybutyrate is 1.7
- Similar admission on 11/04- 11/06/21
- per DKA protocol
- IVF NS
- c/w Insulin gtt ( 0.2u/kg/hr)
- BG q2-3 hrs
- Pending UA
- fall precaution
- DM TELEPHONE LINES REPAIRER consult for insulin management
Essential Hypertension
- lisinopril
Hypothyroidism
- Continue current LT4 replacement.
ASCVD / History of TIA - Stable.
Prior evaluation included negative MRI / no confirmed stroke.
- Continue current CV med regimen.
DVT Prophylaxis: SCDs
Full code
ICU
Total Critical Care Time__55___ minutes.
was immediately available to the patient and staff. I personally examined, reviewed labs, diagnostic images/reports, interpretations, treatment plans, discussed patient care with other providers and family or caregivers (if patient is unable to
make decisions), entered orders as appropriate and documented the medical record.
[2024-11-23] MEDS: NOVOLIN R 6 UNITS IV (15:13)
[2024-11-23] MEDS: NSS 1000 IV ×2 (15:15→15:16)
[2024-11-23] MEDS: NOVOLIN R INSULIN INFUSION 100 IV (15:49)
[2024-11-23 15:55] LABS: Glucose - Point of Care 403 mg/dl (70-99)
[2024-11-23] MEDS: ZOFRAN 4 MG IV (16:08)
[2024-11-23 16:52] LABS: Blood Urea Nitrogen 34 mg/dl (7-17); Calcium 8.8 mg/dl (8.4-10.2); Carbon Dioxide 20 mmol/L (22-30); Chloride 108 mmol/L (98-107); Estimated Creatinine Clearance 46 ml/min; Glucose 372 mg/dl (70-99); Potassium 4.3 mmol/L (3.5-5.1); Sodium 143 mmol/L (135-145); eGFR > 60.00
[2024-11-23 17:06] LABS: COVID-19 Antigen Negative (Negative)
[2024-11-23 17:09] LABS: Urine Albumin Negative (Neg - Trace); Urine Bilirubin Negative (Negative); Urine Character Clear (Clear); Urine Color Yellow; Urine Glucose 4+ (Negative); Urine Ketone 3+ (Negative); Urine Leukocyte Negative (Negative); Urine Nitrite Negative (Negative); Urine Occult Blood Negative (Negative); Urine Urobilinogen Negative (Neg - 1+)
[2024-11-23 17:13] LABS: Glucose - Point of Care 339 mg/dl (70-99)
[2024-11-23 17:15] LABS: TSH Reflex To Free T4 0.02 uIU/ml (0.47-4.68)
[2024-11-23 17:47] LABS: Free T4 5.54 ng/dl (0.78-2.19)
[2024-11-23 18:11] LABS: Glucose - Point of Care 229 mg/dl (70-99)
[2024-11-23] MEDS: NSS with KCL 20 MEQ 1000 IV (18:22)
--- NOTE | 2024-11-23 18:24 | W.PN.UPDATE ---
Update Note
Progress Note Update
#
Patient's blood sugar 229
Will stop IV NSS with 20 KCl start D5 half NSS with 20 KCl
Continue to monitor blood sugar
Continue insulin drip
#Reported sore throat
Will add Cepacol lozenges
[2024-11-23 19:06] LABS: Glucose - Point of Care 180 mg/dl (70-99)
[2024-11-23] MEDS: ANESTHETIC LOZENGE 1 LOZENGE PO (19:13)
[2024-11-23] MEDS: D5/0.45%NSS with KCL 40 MEQ 1000 IV (19:33)
[2024-11-23 19:43] LABS: Blood Urea Nitrogen 32 mg/dl (7-17); Carbon Dioxide 25 mmol/L (22-30); Chloride 109 mmol/L (98-107); Estimated Creatinine Clearance 46 ml/min; Glucose 174 mg/dl (70-99); Potassium 3.9 mmol/L (3.5-5.1); Sodium 141 mmol/L (135-145); eGFR > 60.00
[2024-11-23 20:06] LABS: Glucose - Point of Care 163 mg/dl (70-99)
[2024-11-23 20:07] LABS: Calcium 8.9 mg/dl (8.4-10.2)
--- NOTE | 2024-11-23 20:36 | W.PN.UPDATE ---
Update Note
Progress Note Update
Sore throat likely viral
- Exam of sore throat no pharyngeal erythema or exudate appreciated slight swelling of the uvula airway is intact able to swallow drinks
- Too painful to suck on Cepacol lozenge or
- Will add Magic mouthwash as needed sore throat
[2024-11-23 21:21] LABS: Glucose - Point of Care 159 mg/dl (70-99)
[2024-11-23] MEDS: LOVENOX 40 MG SC (21:45)
[2024-11-23 22:10] LABS: Glucose - Point of Care 142 mg/dl (70-99)
--- NOTE | 2024-11-23 22:30 | PTCARENOTE ---
Pt received from ED with insulin pump detached. Per report pts daughter did not want to bring insulin pump home with her. Insulin pump in room on couch wrapped in cover. Pt made aware and will update dayshift RN during report.
[2024-11-23] MEDS: LANTUS 0.1 UNITS SC (22:40)
[2024-11-24] VITALS (13 sets, daily range): BP systolic 94–164; BP diastolic 38–98; PULSE 86–93; O2SAT 91–94; BMI 21.9
[2024-11-24 02:08] LABS: Glucose - Point of Care 140 mg/dl (70-99)
--- NOTE | 2024-11-24 03:30 | PTCARENOTE ---
Pt on RA desatting to 84% while sleeping. Alva CURRENCY EXAMINER on floor and made aware. Order entered for 2L O2 which was placed on pt with increase in POX to 97%. Pt's only complaint is sore throat. Refuses magic mouthwash and lozenges. Repeat accucheck in
150's. Off Insulin gtt and IVF's. Call sanders remains within reach. Will continue to monitor.
[2024-11-24 04:17] LABS: Glucose - Point of Care 156 mg/dl (70-99)
--- NOTE | 2024-11-24 04:43 | PTCARENOTE ---
Pt without UO for shift. Purewick in place. Bladder scanned for 417mls. Pt does not feel need to void but will try using purewick. Will continue to monitor.
--- NOTE | 2024-11-24 04:46 | PTCARENOTE ---
At 2300 accucheck 142 on Insulin gtt 2units. At 0000 Alva INSTRUMENT OPERATOR ordered Lantus 10 units to be given then one hr later Insulin gtt and IVFs off. Pt received Lantus as ordered and Insulin gtt and IVFs turned off. Ordered repeat Q2hr accuchecks x 2
resulted 140 and 156. Pt without complaints. Currently resting comfortably. Call sanders remains within reach. Will continue to monitor.
[2024-11-24 05:08] LABS: % Basophils 0.2 % (0-2); % Eosinophils 0.3 % (0-6); % Immature Granulocytes 0.3 % (0-0.5); % Lymphocytes 10.5 % (20.5-51.1); % Monocytes 13.6 % (1.7-9.3); % Neutrophils 75.1 % (42.2-75.2); Absolute Lymphocytes 1.3 10^3/uL (1.2-3.4); Absolute Monocytes 1.7 10^3/uL (0.1-0.6); Absolute Neutrophils 9.5 10^3/uL (1.4-6.5); Hematocrit 30.8 % (37.0-47.0); Hemoglobin 10.2 g/dL (12.0-16.0); Mean Corp Hgb Conc. 33.1 g/dL (33.0-37.0); Mean Corpuscular Hgb 29.7 pg (27.0-31.0); Mean Corpuscular Volume 89.5 fL (81.0-99.0); Mean Platelet Volume 9.6 fL (7.4-10.4); Nucleated Red Blood Cells % 0 %; Platelet Count 211 10^3/uL (130-400); Red Blood Cell Count 3.44 10^6/uL (4.20-5.40); Red Cell Dist. Width 13.8 % (11.5-14.5); White Blood Cell Count 12.7 10^3/uL (4.8-10.8)
[2024-11-24 05:31] LABS: Blood Urea Nitrogen 35 mg/dl (7-17); Calcium 8.9 mg/dl (8.4-10.2); Carbon Dioxide 23 mmol/L (22-30); Chloride 109 mmol/L (98-107); Estimated Creatinine Clearance 46 ml/min; Glucose 162 mg/dl (70-99); Potassium 4.6 mmol/L (3.5-5.1); Sodium 140 mmol/L (135-145); eGFR > 60.00
--- NOTE | 2024-11-24 05:40 | PTCARENOTE ---
Pt able to void using purewick. Perineal care provided. 100mls UO. Will continue to monitor.
--- NOTE | 2024-11-24 05:58 | W.PN.UPDATE ---
Update Note
Progress Note Update
~0 anion gap 7. Blood glucose levels 180 and under since 1900. Ordered Lantus 10 units, d/c'd insulin gtt and fluids 2 hours later.�Accuchecks: 2200 result 142, 0200 result 140 and 0400 result 156.
Ordered SS coverage, AC/HS accuchecks and 1800 daniel/15 CHO DD.
[2024-11-24] MEDS: PLAVIX 75 MG PO (07:30)
[2024-11-24] MEDS: CRESTOR 20 MG PO (07:30)
[2024-11-24] MEDS: ZESTRIL 10 MG PO (07:30)
[2024-11-24] MEDS: NOVOLOG FLEXPEN-LOW RESISTANCE 2 UNITS SC ×2 (07:35→11:49)
[2024-11-24] MEDS: D5/0.45%NSS with KCL 40 MEQ IV ×2 (07:48→15:10)
[2024-11-24] MEDS: SYNTHROID 175 MCG PO (07:48)
[2024-11-24 07:49] LABS: Glucose - Point of Care 222 mg/dl (70-99)
[2024-11-24 08:50] LABS: Blood Urea Nitrogen 38 mg/dl (7-17); Calcium 8.9 mg/dl (8.4-10.2); Carbon Dioxide 23 mmol/L (22-30); Chloride 107 mmol/L (98-107); Estimated Creatinine Clearance 46 ml/min; Glucose 229 mg/dl (70-99); Potassium 4.7 mmol/L (3.5-5.1); Sodium 139 mmol/L (135-145); eGFR > 60.00
[2024-11-24 11:22] LABS: Glucose - Point of Care 244 mg/dl (70-99)
[2024-11-24 12:41] LABS: Blood Urea Nitrogen 38 mg/dl (7-17); Calcium 9.1 mg/dl (8.4-10.2); Carbon Dioxide 24 mmol/L (22-30); Chloride 105 mmol/L (98-107); Estimated Creatinine Clearance 52 ml/min; Glucose 311 mg/dl (70-99); Potassium 4.5 mmol/L (3.5-5.1); Sodium 137 mmol/L (135-145); eGFR > 60.00
--- NOTE | 2024-11-24 12:53 | W.PN.HOSP.TC ---
Today's Communication/Plan
-
Start Lantus/NovoLog
Assessment / Plan
Assessment / Plan
Impression:
Assessment/plan:
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
History of pump malfunction October 2021 due to bent catheter
Patient was given rapid acting 10 units subcu insulin by family prior to arrival
Blood sugar at home 550 here 490, anion gap 16
B hydroxy 1.73
-No recent antibiotics diarrhea thought to be related to DKA
- Removed insulin pump
- Pending HgbA1c
- IV insulin drip started, currently switched to subcu insulin
- Will start Lantus 10 at night and 4 Premeal insulin and addition of sliding
- Diabetic FOLLOW UP CLERK, diabetic education
Lactic acidosis due to DKA
Lactic acid 4 will trend, VBG pH 7.31
Acute hypoxic respiratory insufficiency likely secondary to COPD
hypoxic at 83 to 86% on room air I placed her on 2 L nasal cannula with pulse ox improving to 93
WBC 13.6 with left shift, afebrile 98.4, HR 98, 148/61
- Check urinalysis with culture reflex
- Continue 2 L nasal cannula oxygen
- COVID, influenza-negative
CXR 1. moderate bilateral lung hyperinflation suggesting chronic obstructive pulmonary disease (COPD).
2. 1.0 cm nodular opacity in the peripheral right midlung. Diagnostic possibilities are (1) lung cancer or (2) an infectious or inflammatory pulmonary nodule.
3. Mild subpleural scarring in both lower lungs.
NEW 1 cm nodular opacity right midlung
- Recommend follow-up outpatient pulmonology given prior history of smoker
- Need lung cancer screening CT chest
Cognitive impairment with reported history of severe agitation yell and scream
Family to follow-up with PCP to attempt to get agitation medication and formal diagnosis
-Consult OT for BCAT
-Seroquel 12.5 mg as needed agitation
Primary hypertension
BP 148/61
- Continue lisinopril 10 mg with hold parameters
Hypothyroidism
- Continue levothyroxine 175 mcg p.o. daily
Check TSH with free T4 reflex-recommend repeat thyroid function studies in 6 weeks given DKA possibly false results TSH 0.02, free T5.54
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
Prior evaluation included negative MRI no confirmed stroke
- Continue Plavix 75 mg daily
Hyperlipidemia
- Continue Crestor
CODE STATUS: DNR
DVT prophylaxis: Lovenox
Diet: Diabetic diet
Total time spent on today's encounter was 65 minutes which included time spent in counseling the patient/family regarding diagnosis and treatment plan as listed above, goals of care, and symptom management. Case was discussed with nursing staff,
specialists, and care coordinators/case management. All labs and imaging personally reviewed by me. Remainder the time spent in detailed review of previous records, lab data, imaging, and other medical provider documentation.
Anticipated Discharge: Within 24 hours
Subjective/Interval History
-
Date of Service: November 24, 2024
Patient seen and examined at bedside, denies any chest pain or shortness of breath, no abdominal pain, no nausea, no vomiting, no diarrhea or constipation.
Gap closed and currently on subcu insulin.
Objective Data
-
Labs:
Laboratory Results
11/24/24 11/24/24 11/24/24
04:26 08:10 12:07
WBC 12.7 H
Hgb 10.2 L
Hct 30.8 L
Plt Count 211
Sodium 140 139 137
Potassium 4.6 4.7 4.5
Chloride 109 H 107 105
Carbon Dioxide 23 23 24
BUN 35 H 38 H 38 H
Creatinine 0.9 0.9 0.8
Glucose 162 H 229 H 311 H
Calcium 8.9 8.9 9.1
Vital Signs:
Vital Signs
Temp Pulse Resp BP Pulse Ox
98.3 F 73 15 114/45 99
11/24/24 11:00 11/24/24 07:30 11/24/24 04:30 11/24/24 07:30 11/24/24 04:30
I&O
11/23/24 11/24/24 11/25/24
06:59 06:59 06:59
Intake Total 300 / 300
Output Total 100 / 100
Balance 200 / 200
Physical Exam
-
General: Well Developed, Well Nourished, No Apparent Distress and Comfortable
HEENT: Normocephalic, Atraumatic, Moist Mucous Membranes, No Ptosis, PERRLA and Nose Appears Normal
Respiratory: Clear to Auscultation and Non Labored Respirations
Cardiac: Regular Rhythm and S1/S2
Breast: Deferred by me
GI: Soft, Nontender, Nondistended and Normal Bowel Sounds
Genito-urinary: No Costovertebral Tender
Musculoskeletal: No Clubbing, No Cyanosis and No Edema
Skin: Warm
Neuro: Awake, Alert, Oriented, AO x 3 and No Motor Deficits
Psych: Calm
Data Reviewed
-
Diagnostic Radiology: Image personally visualized and interpreted and Report Reviewed by me
CT Scan: Image personally visualized and interpreted and Report Reviewed by me
Ultrasound: Image personally visualized and interpreted and Report Reviewed by me
MRI: Image personally visualized and interpreted and Report Reviewed by me
Medical Tests (Nuc Med, Echo etc): Image personally visualized and interpreted and Report Reviewed by me
Labs: Labs Reviewed by me
Old Records: Reviewed
[2024-11-24] MEDS: TYLENOL 650 MG PO (14:18)
[2024-11-24] MEDS: MAGIC OR MIRACLE MOUTHWASH 15 ML PO (14:20)
[2024-11-24] MEDS: NOVOLOG FLEXPEN 4 UNITS SC (16:42)
[2024-11-24] MEDS: NOVOLOG FLEXPEN-LOW RESISTANCE 5 UNITS SC (16:42)
[2024-11-24 16:57] LABS: Glucose - Point of Care 385 mg/dl (70-99)
[2024-11-24 17:11] LABS: Blood Urea Nitrogen 38 mg/dl (7-17); Calcium 9.3 mg/dl (8.4-10.2); Carbon Dioxide 22 mmol/L (22-30); Chloride 103 mmol/L (98-107); Estimated Creatinine Clearance 52 ml/min; Glucose 411 mg/dl (70-99); Potassium 5.1 mmol/L (3.5-5.1); Sodium 136 mmol/L (135-145); eGFR > 60.00
--- NOTE | 2024-11-24 17:56 | PTCARENOTE ---
Assumed care of Pt at shift change; Pt resting comfortably in bed; AAO x 3; Mentation improved from previous shift; NIH = 2, R leg drift; 96% on RA; VSS; Will continue to monitor and assess.
--- NOTE | 2024-11-24 18:00 | PTCARENOTE ---
Pt found at end of bed trying to get OOB; Pt expressed wanting to leave the hospital - s/w Pt and review reasons for hospitalization and care plan. Reviewed blood sugars and insulin orders. Assisted to bathroom and helped to chair. Pt
appreciative. Will continue to monitor and assess.
[2024-11-24] MEDS: LOVENOX 40 MG SC (18:35)
[2024-11-24 21:39] LABS: Glucose - Point of Care 303 mg/dl (70-99)
[2024-11-24] MEDS: LANTUS 0.1 UNITS SC (22:08)
[2024-11-25] VITALS (14 sets, daily range): BP systolic 139–187; BP diastolic 52–113; BMI 21.4
[2024-11-25] MEDS: MAGIC OR MIRACLE MOUTHWASH 15 ML PO (03:27)
[2024-11-25 05:02] LABS: % Basophils 0.5 % (0-2); % Eosinophils 2.1 % (0-6); % Immature Granulocytes 0.2 % (0-0.5); % Lymphocytes 12.3 % (20.5-51.1); % Monocytes 8.8 % (1.7-9.3); % Neutrophils 76.1 % (42.2-75.2); Absolute Eosinophils 0.2 10^3/uL (0-0.7); Absolute Monocytes 0.7 10^3/uL (0.1-0.6); Absolute Neutrophils 6.4 10^3/uL (1.4-6.5); Hematocrit 31.9 % (37.0-47.0); Hemoglobin 11.1 g/dL (12.0-16.0); Mean Corp Hgb Conc. 34.8 g/dL (33.0-37.0); Mean Corpuscular Hgb 30.3 pg (27.0-31.0); Mean Corpuscular Volume 87.2 fL (81.0-99.0); Mean Platelet Volume 9.5 fL (7.4-10.4); Nucleated Red Blood Cells % 0 %; Platelet Count 200 10^3/uL (130-400); Red Blood Cell Count 3.66 10^6/uL (4.20-5.40); Red Cell Dist. Width 13.2 % (11.5-14.5); White Blood Cell Count 8.4 10^3/uL (4.8-10.8)
[2024-11-25 05:22] LABS: Blood Urea Nitrogen 28 mg/dl (7-17); Calcium 9.3 mg/dl (8.4-10.2); Carbon Dioxide 25 mmol/L (22-30); Chloride 105 mmol/L (98-107); Estimated Creatinine Clearance 69 ml/min; Glucose 276 mg/dl (70-99); Potassium 4.4 mmol/L (3.5-5.1); Sodium 139 mmol/L (135-145); eGFR > 60.00
--- NOTE | 2024-11-25 05:54 | W.PN.UPDATE ---
Update Note
Progress Note Update
Per RN, Pt c/o difficulty swallow and cough w/PO intake (both food and liquids). Ordered NPO and speech evaluation.
[2024-11-25] MEDS: SYNTHROID 175 MCG PO (05:55)
[2024-11-25] MEDS: TYLENOL 650 MG PO (06:00)
[2024-11-25] MEDS: PLAVIX 75 MG PO (08:34)
[2024-11-25] MEDS: NOVOLOG FLEXPEN SC ×2 (08:35→17:34)
[2024-11-25] MEDS: ZESTRIL 10 MG PO (08:35)
[2024-11-25] MEDS: CRESTOR 20 MG PO (08:35)
[2024-11-25] MEDS: NOVOLOG FLEXPEN-MODERATE RESISTANCE 5 UNITS SC (08:39)
[2024-11-25] MEDS: ZOFRAN 4 MG IV (08:40)
--- NOTE | 2024-11-25 08:48 | PN.DE.MGMTRT ---
Insulin Management
- -
11/25/2024: Diabetes Management Consult
83 year old female well know to me from the office and prior hospital visit due to DKA. PMH: She has type 1 diabetes and is currently using the tandem tslim x2 pump with AutoSoft XC infusion sets, NovoLog and DexCom G6, follows up with Dr. Porras
Ernestina for routine diabetes care. Pt has used insulin pump for over 30 years. She presented to the ED for hyperglycemia, noted for glucose of 490 in the ER and in DKA. Pt was started on DKA protocol, GAP closed and she was transitioned off
insulin infusion to SQ insulin.
Pt awake, alert, oriented, sitting up in chair, states she feels better today. Dtr- Cassandra at bedside.
Pt thinks her insulin pump was malfunctioning, tho there was no kink at the site of insertion and no signs of lipohypertrophy or atrophy.
Pt admits that she has not been bolusing before meals, she usually waits till she is done her meal then takes a bolus. Her daughter that she lives with states states that pt does have history of low blood sugar in the evening, after dinner before
bedtime. She is not sure if this is because she over boluses after the meal. She generally treats with orange juice, milk and PBJs.
She was seen in the office in mid-July and was instructed to trend glucose before dinner and every 2 hours after dinner to determine if basal or bolus need adjustments but reports that she never followed through with that plan because she became
ill with influenza.
Last A1C was 7.8% on 08/17/24, Cr 0.63, eGFR > 60.
HS blood sugar was 303, Pt received Lantus 10 units, FBG 276 this AM. 11/24 premeal glucose was 222 to 385.
She as NPO earlier today due to concern for aspiration, states she was seen by Speech therapy and was cleared for a diet.
Pt dose not have all her insulin pump supplies and insulin at bedside. Per collaborative discussion with pt and Dtr at bedside, will cont with current regimen but switch Lantus to AM schedule.
Will give Lantus 15 units in AM, 1st dose NOW. Start AC NovoLog 4 units and low corrective with meals
Will followup in AM to resume inulin pump. Has a lengthy discussion with pt and Dtr regarding device management and reviewed pros and cons of current insulin pumps on the market. Pt would like to switch back to the Medtronic 780G, states it was much
easier for her to use than her current Tandem T-Slim x2 pump.
Diabetes History
- -
Type of Diabetes: 1
Pre-Admission Diabetes Regimen
11/24/24 11/24/24 11/24/24
08:10 12:07 16:48
Creatinine 0.9 0.8 0.8
11/25/24
04:43
Creatinine 0.6
Insulin Pump Settings
IP Diabetes Regimen
11/24/24 11/24/24 11/24/24
08:10 11:10 12:07
Glucose 229 H 311 H
POC Glucose 244 H
11/24/24 11/24/24 11/24/24
16:41 16:48 21:28
Glucose 411 H
POC Glucose 385 H 303 H
11/25/24
04:43
Glucose 276 H
POC Glucose
Patient Education
[2024-11-25 08:49] LABS: Glucose - Point of Care 268 mg/dl (70-99)
--- NOTE | 2024-11-25 10:00 | PTOTSP ---
Speech Therapy Evaluation:
Pt presents with grossly functional oropharyngeal swallow with no overt s/sx of aspiration. Based on pt report, suspect difficulty swallowing is in relation to sore throat instead of true dysphagia. Pt also endorsed globus sensation. When paired
with frequent belching during PO, suspect some level of esophageal involvement. CXR concerning for predisposing risk factors of moderate COPD and opacity in R lung (cancer vs infectious pulmonary nodule), however pt currently afebrile, WBC WNL, on
room air, and passed 3oz swallow screen.
Recommend:
1. Initiate IDDSI level 7 (regular solids) and thin liquids with softer selections per pt preference
2. Medications whole in water per pt preference
3. General aspiration precautions; strict reflux precautions
4. REJOINER to follow to monitor tolerance of diet, likely brief
--- NOTE | 2024-11-25 10:02 | W.PN.HOSP.TC ---
Today's Communication/Plan
-
adjusted insulin regemin.
Assessment / Plan
Assessment / Plan
Impression:
Assessment/plan:
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
History of pump malfunction October 2021 due to bent catheter
Patient was given rapid acting 10 units subcu insulin by family prior to arrival
Blood sugar at home 550 here 490, anion gap 16
B hydroxy 1.73
-No recent antibiotics diarrhea thought to be related to DKA
- Removed insulin pump
- Pending HgbA1c
- IV insulin drip started, currently switched to subcu insulin
- Will start Lantus 10 at night and 4 Premeal insulin and addition of sliding
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
11/25
Blood sugar was elevated.
Insulin regimen adjusted
breakfast Lunch Dinner bedtime
Lantus 15
Novolog 4 4 4
Sliding scale moderate
Lactic acidosis due to DKA
Lactic acid 4 will trend, VBG pH 7.31
Acute hypoxic respiratory insufficiency likely secondary to COPD
hypoxic at 83 to 86% on room air I placed her on 2 L nasal cannula with pulse ox improving to 93
WBC 13.6 with left shift, afebrile 98.4, HR 98, 148/61
- Check urinalysis with culture reflex
- Continue 2 L nasal cannula oxygen
- COVID, influenza-negative
CXR 1. moderate bilateral lung hyperinflation suggesting chronic obstructive pulmonary disease (COPD).
2. 1.0 cm nodular opacity in the peripheral right midlung. Diagnostic possibilities are (1) lung cancer or (2) an infectious or inflammatory pulmonary nodule.
3. Mild subpleural scarring in both lower lungs.
11/25
passed swallow eval.
NEW 1 cm nodular opacity right midlung
- Recommend follow-up outpatient pulmonology given prior history of smoker
- Need lung cancer screening CT chest
Cognitive impairment with reported history of severe agitation yell and scream
Family to follow-up with PCP to attempt to get agitation medication and formal diagnosis
-Consult OT for BCAT
-Seroquel 12.5 mg as needed agitation
Primary hypertension
BP 148/61
- Continue lisinopril 10 mg with hold parameters
Hypothyroidism
- Continue levothyroxine 175 mcg p.o. daily
Check TSH with free T4 reflex-recommend repeat thyroid function studies in 6 weeks given DKA possibly false results TSH 0.02, free T5.54
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
Prior evaluation included negative MRI no confirmed stroke
- Continue Plavix 75 mg daily
Hyperlipidemia
- Continue Crestor
CODE STATUS: DNR
DVT prophylaxis: Lovenox
Diet: Diabetic diet
Total time spent on today's encounter was 65 minutes which included time spent in counseling the patient/family regarding diagnosis and treatment plan as listed above, goals of care, and symptom management. Case was discussed with nursing staff,
specialists, and care coordinators/case management. All labs and imaging personally reviewed by me. Remainder the time spent in detailed review of previous records, lab data, imaging, and other medical provider documentation.
Anticipated Discharge: 24 - 48 hours
Subjective/Interval History
-
Date of Service: November 25, 2024
Patient seen and examined at bedside, blood pressure was elevated overnight, insulin regimen adjusted.
Patient passed swallow eval.
Patient denies any chest pain or shortness of breath, no abdominal pain, no nausea, no vomiting, no diarrhea or constipation.
Objective Data
-
Labs:
Laboratory Results
11/25/24
04:43
WBC 8.4
Hgb 11.1 L
Hct 31.9 L
Plt Count 200
Sodium 139
Potassium 4.4
Chloride 105
Carbon Dioxide 25
BUN 28 H
Creatinine 0.6
Glucose 276 H
Calcium 9.3
Vital Signs:
Vital Signs
Temp Pulse Resp BP Pulse Ox
98.1 F 59 14 147/60 94
11/25/24 07:30 11/25/24 08:35 11/25/24 08:00 11/25/24 08:35 11/25/24 08:34
I&O
11/24/24 11/25/24 11/26/24
06:59 06:59 06:59
Intake Total 300 / 300
Output Total 100 / 100
Balance 200 / 200
Physical Exam
-
General: Well Developed, Well Nourished, No Apparent Distress and Comfortable
HEENT: Normocephalic, Atraumatic, Moist Mucous Membranes, No Ptosis, PERRLA and Nose Appears Normal
Respiratory: Rales and Non Labored Respirations
Cardiac: Regular Rhythm and S1/S2
Breast: Deferred by me
GI: Soft, Nontender, Nondistended and Normal Bowel Sounds
Genito-urinary: No Costovertebral Tender
Musculoskeletal: No Clubbing, No Cyanosis and No Edema
Skin: Warm
Neuro: Awake, Alert, Oriented, AO x 3 and No Motor Deficits
Psych: Calm
Data Reviewed
-
Diagnostic Radiology: Image personally visualized and interpreted and Report Reviewed by me
CT Scan: Image personally visualized and interpreted and Report Reviewed by me
Ultrasound: Image personally visualized and interpreted and Report Reviewed by me
MRI: Image personally visualized and interpreted and Report Reviewed by me
Medical Tests (Nuc Med, Echo etc): Image personally visualized and interpreted and Report Reviewed by me
Labs: Labs Reviewed by me
Old Records: Reviewed
[2024-11-25] MEDS: LANTUS 0.15 UNITS SC (10:23)
--- NOTE | 2024-11-25 12:00 | PTCARENOTE ---
Assumed care of patient at 0645. Assessment completed and documented under shift assessment on worklist.
Patient is pleasant, AAOX3. Forgetful and impulsive at times. Bed/chair alarm active for safety. RA, CTA. SR with BBB on monitor. R Hand IV patent. +1 LE Edema. Brief episode of nausea this morning treated with IV Zofran. Tolerating meals, cleared
CIGAR MAKER evaluation. Voiding in BR, 1-person stand-by assist (patient wobbly on feet). Diabetic Nurse Practitioner to evaluate patient's regimen.
[2024-11-25 12:50] LABS: Glucose - Point of Care 352 mg/dl (70-99)
[2024-11-25] MEDS: NOVOLOG FLEXPEN 4 UNITS SC (14:10)
[2024-11-25] MEDS: NOVOLOG FLEXPEN-MODERATE RESISTANCE 9 UNITS SC (14:10)
[2024-11-25 14:44] LABS: Glycohemoglobin (HgbA1c) 8.4 % (4.0-5.6)
[2024-11-25] MEDS: APRESOLINE 5 MG IV (15:02)
--- NOTE | 2024-11-25 17:16 | CM ---
Patient with Dx DKA, Cognitive impairment. SQ Insulin. Per nurse; assist of 1, OOB chair/amb in room, forgetful.
Met with patient resides who resides with her daughter, grandson and his & baby in a 2 story house with 1 LUCINA.
The patient was independent in ADLs and ambulation.
DME - Dexcom insulin pump, [facility]
No prior VN or SNF.
PCP - Karley Noe
Pharmacy - [facility]
Offered VN and patient declined.
No CM d/c needs identified.
Plan home.
[2024-11-25] MEDS: NOVOLOG FLEXPEN-MODERATE RESISTANCE SC (17:34)
[2024-11-25] MEDS: NOVOLOG FLEXPEN 6 UNITS SC (17:37)
[2024-11-25] MEDS: LOVENOX 40 MG SC (17:37)
[2024-11-25 17:44] LABS: Glucose - Point of Care 108 mg/dl (70-99)
[2024-11-25 21:12] LABS: Glucose - Point of Care 165 mg/dl (70-99)
[2024-11-26] VITALS (11 sets, daily range): BP systolic 146–177; BP diastolic 62–102; PULSE 60; BMI 21.8
--- NOTE | 2024-11-26 00:11 | PTCARENOTE ---
Pt received from previous shift. pt is forgetful at times. bed alarm in use. daughter visited at bedside. assessment as documented.
[2024-11-26] MEDS: SYNTHROID 175 MCG PO (05:00)
[2024-11-26 05:16] LABS: % Basophils 0.5 % (0-2); % Immature Granulocytes 0.2 % (0-0.5); % Lymphocytes 14.5 % (20.5-51.1); % Monocytes 10.6 % (1.7-9.3); % Neutrophils 70.2 % (42.2-75.2); Absolute Eosinophils 0.3 10^3/uL (0-0.7); Absolute Lymphocytes 1.2 10^3/uL (1.2-3.4); Absolute Monocytes 0.9 10^3/uL (0.1-0.6); Absolute Neutrophils 5.7 10^3/uL (1.4-6.5); Hematocrit 33.4 % (37.0-47.0); Hemoglobin 11.6 g/dL (12.0-16.0); Mean Corp Hgb Conc. 34.7 g/dL (33.0-37.0); Mean Corpuscular Hgb 29.7 pg (27.0-31.0); Mean Corpuscular Volume 85.4 fL (81.0-99.0); Mean Platelet Volume 9.1 fL (7.4-10.4); Nucleated Red Blood Cells % 0 %; Platelet Count 203 10^3/uL (130-400); Red Blood Cell Count 3.91 10^6/uL (4.20-5.40); Red Cell Dist. Width 13.2 % (11.5-14.5); White Blood Cell Count 8.2 10^3/uL (4.8-10.8)
[2024-11-26 05:34] LABS: Blood Urea Nitrogen 17 mg/dl (7-17); Calcium 9.8 mg/dl (8.4-10.2); Carbon Dioxide 31 mmol/L (22-30); Chloride 105 mmol/L (98-107); Estimated Creatinine Clearance 69 ml/min; Glucose 166 mg/dl (70-99); Potassium 4.3 mmol/L (3.5-5.1); Sodium 143 mmol/L (135-145); eGFR > 60.00
--- NOTE | 2024-11-26 07:28 | PN.DE.MGMTRT ---
Insulin Management
- -
11/26/2024: Diabetes Management follow up
83 year old female well know to me from the office and prior hospital visit due to DKA. PMH: She has type 1 diabetes and is currently using the tandem tslim x2 pump with AutoSoft XC infusion sets, NovoLog and DexCom G6, follows up with Dr. Porras
Ernestina for routine diabetes care. Pt has used insulin pump for over 30 years. She presented to the ED for hyperglycemia, noted for glucose of 490 in the ER and in DKA. Pt was started on DKA protocol, GAP closed and she was transitioned off
insulin infusion to SQ insulin.
Pt thinks her insulin pump was malfunctioning, tho there was no kink at the site of insertion and no signs of lipohypertrophy or atrophy.
Pt admits that she has not been bolusing before meals, she usually waits till she is done her meal then takes a bolus. Her daughter that she lives with states states that pt does have history of low blood sugar in the evening, after dinner before
bedtime. She is not sure if this is because she over boluses after the meal. She generally treats with orange juice, milk and PBJs.
She was seen in the office in mid-July and was instructed to trend glucose before dinner and every 2 hours after dinner to determine if basal or bolus need adjustments but reports that she never followed through with that plan because she became
ill with influenza.
Last A1C was 7.8% on 08/17/24, Current A1C 8.45, Cr 0.63, eGFR > 60.
Pt awake, alert, oriented, sitting up in chair, states she feels better today. No family at bedside.
Had an elevated glucose pre-lunch yesterday to 352, but improved later in the day to 160's. FBG 166 V this AM.
Had another lengthy discussion with pt today, discussed current A1C of 8.4% which is the highest it's been in over 8 years, recommended resuming insulin pump with basal rate adjustment, however, pt would like to stay on MDI using insulin pen.
Will make no changes to current regimen, cont Lantus 15 units in AM, AC NovoLog 6 units and low corrective with meals.
Pt states that her ultimate goal is to switch back to the Medtronic 780G, states it was much easier for her to use than her current Tandem T-Slim x2 pump.
Pt has an appointment with her Endo Dr. Do in 2 weeks for followup.
Diabetes History
- -
Type of Diabetes: 1
Pre-Admission Diabetes Regimen
11/26/24
04:57
Creatinine 0.6
Lab Results
Hemoglobin A1c 8.4 % (4.0-5.6) H 11/25/24 04:43
Insulin Pump Settings
IP Diabetes Regimen
11/25/24 11/25/24 11/25/24
08:38 12:39 17:33
Glucose
POC Glucose 268 H 352 H 108 H
11/25/24 11/26/24
21:01 04:57
Glucose 166 H
POC Glucose 165 H
Meal type: Breakfast
Patient Education
[2024-11-26 08:24] LABS: Glucose - Point of Care 190 mg/dl (70-99)
[2024-11-26] MEDS: LANTUS 0.15 UNITS SC (09:29)
[2024-11-26] MEDS: NOVOLOG FLEXPEN-MODERATE RESISTANCE 1 UNITS SC (09:29)
[2024-11-26] MEDS: PLAVIX 75 MG PO (09:29)
[2024-11-26] MEDS: ZESTRIL 10 MG PO (09:29)
[2024-11-26] MEDS: CRESTOR 20 MG PO (09:29)
[2024-11-26] MEDS: NOVOLOG FLEXPEN 6 UNITS SC ×2 (09:30→13:00)
--- NOTE | 2024-11-26 10:58 | W.PN.HOSP.TC ---
Today's Communication/Plan
-
Discharge home today
Assessment / Plan
Assessment / Plan
Impression:
Assessment/plan:
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
History of pump malfunction October 2021 due to bent catheter
Patient was given rapid acting 10 units subcu insulin by family prior to arrival
Blood sugar at home 550 here 490, anion gap 16
B hydroxy 1.73
-No recent antibiotics diarrhea thought to be related to DKA
- Removed insulin pump
- Pending HgbA1c
- IV insulin drip started, currently switched to subcu insulin
- Will start Lantus 10 at night and 4 Premeal insulin and addition of sliding
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
11/25
Blood sugar was elevated.
Insulin regimen adjusted
breakfast Lunch Dinner bedtime
Lantus 15
Novolog 4 4 4
Sliding scale moderate
Lactic acidosis due to DKA
Lactic acid 4 will trend, VBG pH 7.31
Acute hypoxic respiratory insufficiency likely secondary to COPD
hypoxic at 83 to 86% on room air I placed her on 2 L nasal cannula with pulse ox improving to 93
WBC 13.6 with left shift, afebrile 98.4, HR 98, 148/61
- Check urinalysis with culture reflex
- Continue 2 L nasal cannula oxygen
- COVID, influenza-negative
CXR 1. moderate bilateral lung hyperinflation suggesting chronic obstructive pulmonary disease (COPD).
2. 1.0 cm nodular opacity in the peripheral right midlung. Diagnostic possibilities are (1) lung cancer or (2) an infectious or inflammatory pulmonary nodule.
3. Mild subpleural scarring in both lower lungs.
11/25
passed swallow eval.
NEW 1 cm nodular opacity right midlung
- Recommend follow-up outpatient pulmonology given prior history of smoker
- Need lung cancer screening CT chest
Cognitive impairment with reported history of severe agitation yell and scream
Family to follow-up with PCP to attempt to get agitation medication and formal diagnosis
-Consult OT for BCAT
-Seroquel 12.5 mg as needed agitation
Primary hypertension
Blood pressure elevated.
Lisinopril increased to 20 mg
Hypothyroidism
- Continue levothyroxine 175 mcg p.o. daily
Check TSH with free T4 reflex-recommend repeat thyroid function studies in 6 weeks given DKA possibly false results TSH 0.02, free T5.54
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
Prior evaluation included negative MRI no confirmed stroke
- Continue Plavix 75 mg daily
Hyperlipidemia
- Continue Crestor
CODE STATUS: DNR
DVT prophylaxis: Lovenox
Diet: Diabetic diet
Total time spent on today's encounter was 65 minutes which included time spent in counseling the patient/family regarding diagnosis and treatment plan as listed above, goals of care, and symptom management. Case was discussed with nursing staff,
specialists, and care coordinators/case management. All labs and imaging personally reviewed by me. Remainder the time spent in detailed review of previous records, lab data, imaging, and other medical provider documentation.
Anticipated Discharge: Today
Subjective/Interval History
-
Date of Service: November 26, 2024
Patient seen and examined at bedside, denies any chest pain or shortness of breath, no abdominal pain, no nausea, no vomiting, no diarrhea or constipation.
Objective Data
-
Labs:
Laboratory Results
11/26/24
04:57
WBC 8.2
Hgb 11.6 L
Hct 33.4 L
Plt Count 203
Sodium 143
Potassium 4.3
Chloride 105
Carbon Dioxide 31 H
BUN 17
Creatinine 0.6
Glucose 166 H
Calcium 9.8
Vital Signs:
Vital Signs
Temp Pulse Resp BP Pulse Ox
98.4 F 70 11 171/77 97
11/26/24 03:10 11/26/24 10:00 11/26/24 08:00 11/26/24 10:00 11/26/24 08:00
Physical Exam
-
General: Well Developed, Well Nourished, No Apparent Distress and Comfortable
HEENT: Normocephalic, Atraumatic, Moist Mucous Membranes, No Ptosis, PERRLA and Nose Appears Normal
Respiratory: Rales and Non Labored Respirations
Cardiac: Regular Rhythm and S1/S2
Breast: Deferred by me
GI: Soft, Nontender, Nondistended and Normal Bowel Sounds
Genito-urinary: No Costovertebral Tender
Musculoskeletal: No Clubbing, No Cyanosis and No Edema
Skin: Warm
Neuro: Awake, Alert, Oriented, AO x 3 and No Motor Deficits
Psych: Calm
Data Reviewed
-
Diagnostic Radiology: Image personally visualized and interpreted and Report Reviewed by me
CT Scan: Image personally visualized and interpreted and Report Reviewed by me
Ultrasound: Image personally visualized and interpreted and Report Reviewed by me
MRI: Image personally visualized and interpreted and Report Reviewed by me
Medical Tests (Nuc Med, Echo etc): Image personally visualized and interpreted and Report Reviewed by me
Labs: Labs Reviewed by me
Old Records: Reviewed
--- NOTE | 2024-11-26 11:53 | W.DCSUMMARY ---
Discharge Summary
Discharge Data
Date of Admission: 11/23/24
Date of Discharge: 11/26/24
-
Pending Results: No
Hospital Course
Hospital course
During hospitalization patient was treated [facility]
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
History of pump malfunction October 2021 due to bent catheter
Patient was given rapid acting 10 units subcu insulin by family prior to arrival
Blood sugar at home 550 here 490, anion gap 16
B hydroxy 1.73
-No recent antibiotics diarrhea thought to be related to DKA
- Removed insulin pump
- Pending HgbA1c
- IV insulin drip started, currently switched to subcu insulin
- Will start Lantus 10 at night and 4 Premeal insulin and addition of sliding
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
11/25
Blood sugar was elevated.
Insulin regimen adjusted
breakfast Lunch Dinner bedtime
Lantus 15
Novolog 4 4 4
Sliding scale moderate
Lactic acidosis due to DKA
Lactic acid 4 will trend, VBG pH 7.31
Acute hypoxic respiratory insufficiency likely secondary to COPD
hypoxic at 83 to 86% on room air I placed her on 2 L nasal cannula with pulse ox improving to 93
WBC 13.6 with left shift, afebrile 98.4, HR 98, 148/61
- Check urinalysis with culture reflex
- Continue 2 L nasal cannula oxygen
- COVID, influenza-negative
CXR 1. moderate bilateral lung hyperinflation suggesting chronic obstructive pulmonary disease (COPD).
2. 1.0 cm nodular opacity in the peripheral right midlung. Diagnostic possibilities are (1) lung cancer or (2) an infectious or inflammatory pulmonary nodule.
3. Mild subpleural scarring in both lower lungs.
11/25
passed swallow eval.
NEW 1 cm nodular opacity right midlung
- Recommend follow-up outpatient pulmonology given prior history of smoker
- Need lung cancer screening CT chest
Cognitive impairment with reported history of severe agitation yell and scream
Family to follow-up with PCP to attempt to get agitation medication and formal diagnosis
-Consult OT for BCAT
-Seroquel 12.5 mg as needed agitation
Primary hypertension
Blood pressure elevated.
Lisinopril increased to 20 mg
Hypothyroidism
- Continue levothyroxine 175 mcg p.o. daily
Check TSH with free T4 reflex-recommend repeat thyroid function studies in 6 weeks given DKA possibly false results TSH 0.02, free T5.54
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
Prior evaluation included negative MRI no confirmed stroke
- Continue Plavix 75 mg daily
Hyperlipidemia
- Continue Crestor
CODE STATUS: DNR
DVT prophylaxis: Lovenox
Diet: Diabetic diet
Total time spent on today's encounter was 40 minutes which included time spent in counseling the patient/family regarding diagnosis and treatment plan as listed above, goals of care, and symptom management. Case was discussed with nursing staff,
specialists, and care coordinators/case management. All labs and imaging personally reviewed by me. Remainder the time spent in detailed review of previous records, lab data, imaging, and other medical provider documentation.
Anticipated Discharge: Today
Discharge Plan
-
Patient Disposition: Home (Routine Discharge)
Discharge Diagnosis/Procedures: DKA.
Hypertension
Hyperlipidemia
Condition: Good
Diet: Diabetic, Carb Controlled
Activity: With assistance and As tolerated
Others Tests: Chest x-ray showed 1.0 cm nodular opacity in the peripheral right midlung. Diagnostic possibilities are (1) lung cancer or (2) an infectious or inflammatory pulmonary nodule. Needs lung cancer screening and follow-up with pulmonology.
Referrals:
Palomo Mukherjee MD [Active] - in three to four weeks
Chiquita Do MD [Consulting Staff] - 12/09/24
Karley Noe MD [Family Provider] -
Prescriptions:
New
insulin glargine [Lantus Solostar U-100 Insulin] 100 unit/mL (3 mL) insulin pen
15 unit SC DAILY Qty: 15 0RF
lisinopril 20 mg Tablet
20 mg PO DAILY Qty: 30 0RF
insulin lispro [Admelog SoloStar U-100 Insulin] 100 unit/mL insulin pen
4 unit SC AC Qty: 15 0RF
(DME) pen needle, diabetic [Novofine 32] 32 gauge x 1/4' needle
See Rx Instructions .Route Qty: 100 0RF
Rx Instructions:
As directed
(DME) CT chest without contrast
See Rx Instructions .Route .MEDSUPPLY Qty: 1 0RF
Rx Instructions:
diagnosis:
Pulmonary nodule
Lung cancer screening-please forward results to PCP/pulmonary
Continued
levothyroxine 175 MCG tablet
175 mcg PO DAILY
rosuvastatin 20 MG tablet
20 mg PO DAILY
clopidogrel [Plavix] 75 mg Tablet
75 mg PO DAILY
Discontinued
lisinopril 10 MG tablet
10 mg PO DAILY
Insulin Pump [Patient's Own Insulin Pump:] 1 UNITS Pump.Resvr
1 dose SC .CONTINUOUS
Patient Comments:
patient family stated NOVOLOG INSULIN- GIVES HERSELF BOLUS WITH MEALS UNSURE OF HER BASAL RATE
Discharge Orders:
Discharge Patient (As Directed); Ordered 11/26/24
Ordered By: Oliver Carrillo
Discharge Date and Time
Print Language: ARABIC
[2024-11-26 12:30] LABS: Glucose - Point of Care 122 mg/dl (70-99)
[2024-11-26] MEDS: NOVOLOG FLEXPEN-MODERATE RESISTANCE SC (13:00)
--- NOTE | 2024-11-26 13:21 | CM ---
CM following re: discharge planning.
Reviewed pt's chart, met with pt.
Discharge order noted. Pt is aware, expressed her agreement with discharge. IMM reviewed, placed on chart, pt has a copy.
PT and OT evaluations noted - outpatient PT/OT recommended. Pt is aware, expressed her agreement and she stated her daughter will transport her to outpatient therapy department. Pt stated her daughter will transport home.
Please provide a script for outpatient PT/OT.
D/C plan: home with outpatient therapy and family support. Daughter to transport.
--- NOTE | 2024-11-26 14:36 | PTCARENOTE ---
Patient AAOx2-3 with some forgetfulness. VSS. DC instructions reviewed in detail with daughter and patient. Instructed on how to use insulin pen, both patient and her daughter performed and taught back the instructions. Spoke with patients home
pharmacy and clarified insulin prescriptions will be ready, MD Carrillo reordered to brands that patients insurance covers. Will confirm prescriptions correct and ready before patient leaves. IV and tele removed.
== END 2024-11-26 15:33 | disposition home or self-care (01) | DRG 919 ==
LOC: IMU 16:10
PROVIDERS: Clinical Nurse Specialist Family Health; Nurse Practitioner Family; Physician Assistant Medical; ADMITTING PHYSICIAN Internal Medicine; ATTENDING PHYSICIAN General Practice; EMERGENCY PHYSICIAN Emergency Medicine; FAMILY PHYSICIAN Internal Medicine
DX: T85.614A Breakdown (mechanical) of insulin pump, initial encounter (principal); E10.10 Type 1 diabetes mellitus with ketoacidosis without coma; K57.32 Diverticulitis of large intestine without perforation or abscess without bleeding; Z87.891 Personal history of nicotine dependence; Z66 Do not resuscitate; Z11.52 Encounter for screening for COVID-19; E10.319 Type 1 diabetes mellitus with unspecified diabetic retinopathy without macular edema; Z79.4 Long term (current) use of insulin; Y74.2 Prosthetic and other implants, materials and accessory general hospital and personal-use devices associated with adverse incidents; R09.02 Hypoxemia; R06.89 Other abnormalities of breathing; I10 Essential (primary) hypertension; E03.9 Hypothyroidism, unspecified; I25.10 Atherosclerotic heart disease of native coronary artery without angina pectoris; Z79.02 Long term (current) use of antithrombotics/antiplatelets; E78.00 Pure hypercholesterolemia, unspecified; E10.36 Type 1 diabetes mellitus with diabetic cataract; J44.9 Chronic obstructive pulmonary disease, unspecified; Z96.41 Presence of insulin pump (external) (internal)
CPT/HCPCS: 71045; 73721; 80048; 80053; 81003; 82010; 82805; 82962; 83036; 83605; 84439; 84443; 85025; 87040; 87502; 87811; 92610; 93005; 96361; 96365; 96366; 97116; 97162; 97167; 97530; 97535; 99291

== ENCOUNTER → 2024-11-27 09:06 | Outpatient (REF) | payer MEDICARE, OTHER, SELFPAY ==
--- NOTE | 2024-11-27 15:22 | PN.DE.MGMTRT ---
Insulin Management
- -
11/27/2024: Diabetes Management/Post hospital discharge follow up
83 year old female well know to me from the office and prior hospital visit due to DKA. PMH: T1DM recently using the tandem tslim x2 pump with AutoSoft XC infusion sets, NovoLog and DexCom G6. Pt follows up with Dr. Chiquita Do for routine
diabetes care. Pt has used insulin pump for over 30 years. She presented to the ED for hyperglycemia on 11/22, noted for glucose of 490 in the ER and in DKA. Pt was started on DKA protocol, GAP closed and she was transitioned off insulin infusion to
SQ insulin and was discharged home on 11/26/2024 to continue the same regimen: Lantus 15 unisin AM and Novolog 4 units AC.
Pt called diabetes office this morning crying, stating that her blood sugar is 385 and that she does not know what to do.
Pt was instructed to come into the office to reinforce insulin pen use instructions and Pt presented to the office in 20 minuets with her Dtr- Cassandra.
Pt was very anxious and looked tired, repeatedly stating that she would like to get back on her pump because 'things were a lot easier' but she has been confused lately and forgetful of simple things and tasks. Pt's Dtr- Cassandra states that she is
able to assist pt with insulin administration via pen at home but she does not know how to work her insulin pump.
Discussed extensively and reviewed insulin adm instructions step by step with pt and dtr. provided print out of insulin instructions for pt to take home with her.
Pt was able to self inject her Lantus and NovoLog insulin without difficulties.
Pt waiting in the office after insulin administration and her glucose was checked 30 mins after administering insulin, it was down to 269.
Pt was instructed to repeat her blood sugar check upon arrival home prior to eating breakfast.
Pt and Dtr called back ~14:22 stating that she ate ~45 grams of CHO at breakfast but did not take any additional insulin at the time and that her pre-lunch blood sugar is 299. Pt is about to eat 50 grams of CHO, instructed to administer 8 units of
NovoLog and to check her blood sugar again before dinner and administer insulin based on a 1:10 insulin carb ration.
Pt and Dtr both verbalized understanding and will call back in the morning to report her fasting blood sugar so the Lantus dose can be adjusted if necessary
Pt has an appointment with her Endo Dr. Do in 2 weeks for followup.
Diabetes History
- -
Type of Diabetes: 1
Pre-Admission Diabetes Regimen
Insulin Pump Settings
IP Diabetes Regimen
Patient Education
== END ==
LOC: DES 09:06
PROVIDERS: ATTENDING PHYSICIAN Internal Medicine Endocrinology, Diabetes & Metabolism
DX: E10.65 Type 1 diabetes mellitus with hyperglycemia (principal)
CPT/HCPCS: 99078

== ENCOUNTER → 2024-12-06 06:54 | Outpatient (REF) | payer MEDICARE, OTHER, SELFPAY ==
[2024-12-06 08:59] LABS: ALT (SGPT) 20 U/L (0-35); AST (SGOT) 21 U/L (14-36); Alkaline Phosphatase 93 U/L (38-126); Blood Urea Nitrogen 21 mg/dl (7-17); Calcium 9.7 mg/dl (8.4-10.2); Carbon Dioxide 28 mmol/L (22-30); Chloride 105 mmol/L (98-107); Glucose 87 mg/dl (70-99); HDL Cholesterol 61 mg/dl; LDL Cholesterol, Calculated 61 mg/dl; Potassium 4.3 mmol/L (3.5-5.1); Sodium 143 mmol/L (135-145); Total Bilirubin 0.7 mg/dl (0.2-1.3); Total Cholesterol 133 mg/dl (50-199); Total Protein 6.2 g/dl (6.3-8.2); Triglyceride 57 mg/dl (10-149); Very Low Density Lipoprotein 11 mg/dl (0-30); eGFR > 60.00
[2024-12-06 09:26] LABS: TSH Reflex To Free T4 < 0.02 uIU/ml (0.47-4.68)
[2024-12-06 11:16] LABS: Free T4 2.95 ng/dl (0.78-2.19)
[2024-12-06 14:18] LABS: Microalbumin, Random Urine 1.1 mg/dl (0.6-1.7); Microalbumin/creatinine Ratio 18.2 mg/g
== END ==
LOC: REG 06:54
PROVIDERS: ATTENDING PHYSICIAN Internal Medicine Endocrinology, Diabetes & Metabolism; FAMILY PHYSICIAN Internal Medicine
DX: E10.9 Type 1 diabetes mellitus without complications (principal); E03.8 Other specified hypothyroidism; E10.65 Type 1 diabetes mellitus with hyperglycemia
CPT/HCPCS: 36415; 80053; 80061; 82043; 82570; 84439; 84443

== ENCOUNTER → 2025-01-07 11:41 | Outpatient (REF) | payer MEDICARE, OTHER, SELFPAY | LOC: RAD 11:41 | PROVIDERS: ATTENDING PHYSICIAN General Practice; OTHER PHYSICIAN Nurse Practitioner | DX: J44.9 Chronic obstructive pulmonary disease, unspecified (principal); Z87.891 Personal history of nicotine dependence; R91.1 Solitary pulmonary nodule | CPT/HCPCS: 71250 ==

== ENCOUNTER 2025-01-22 21:49 | Inpatient (IN) | payer MEDICARE, OTHER, SELFPAY ==
[2025-01-22] VITALS (10 sets, daily range): BP systolic 129–175; BP diastolic 50–87; BMI 21.8
[2025-01-22 18:24] LABS: Glucose - Point of Care 35 mg/dl (70-99)
--- NOTE | 2025-01-22 18:32 | ED.GENMED ---
History of Present Illness
General
Chief Complaint: Blood Sugar Problem
Source: family
Exam Limitations: none
Time Seen by Provider: 01/22/25 18:32
Nursing documentation reviewed up to this point in time: agreed with
History of Present Illness
History of Present Illness:
Patient is an 84-year-old female who was brought to the ER by son. Son reports he arrived to patient's house around 6:00 to take her out to dinner and she was not acting herself. She was sleepy. Patient's blood sugar taken in triage was found to
be 35 she was brought immediately to room 36 where I assessed her. Patient was not responding to questions or her name. Patient was given an amp of D50 and became awake alert.
She does report she took her insulin around 5:30 PM. She does take NovoLog. She does report that she did eat today.
No recent illness
Past History
Past History
ED Past Medical History: Cancer (Skin CA), HTN, Hypercholesterolemia, IDDM, Hypothyroidism and Other (Arthritis, TIA, Diverticulitis, Glaucoma, Anemia, )
ED Past Surgical History: Appendectomy, Gynecological (D&C), Orthopedic (Left knee replacement) and Other (Ankush cataracts)
Social History
Tobacco: Former smoker
Alcohol: Occasional
Drug: None
Personal:
Living: alone
Employment: Retired
Review of Systems
Review of Systems
Allergies reviewed?: Yes
All Other Systems: ROS reviewed and negative except as documented in HPI and ROS
Constitutional: Reports no symptoms
Phy Exam
General Physical Exam
General Presentation: well appearing
General age: appears stated age
General Skin: warm and dry
General Habitus: normal
General Mental: other (not alert not answering questions )
Neurological Exam
Neurological Exam: other (sleepy )
Musculoskeletal Exam
Musculoskeletal Exam: full ROM
Course
Orders/Labs/Results
Orders:
Orders
01/22/25 18:26
Dextrose 50%-Water [Dextrose 50% Syringe] 25 grams .ROUTE .STK-MED ONE
01/22/25 18:27
Glucagon [GlucaGen] 1 mg .ROUTE .STK-MED ONE
01/22/25 18:34
B-Hydroxybutyrate Urgent
Basic Metabolic Panel Urgent
Complete Blood Count/No Diff Urgent
TSH Reflex To Free T4 Urgent
Comment: ADD ON
01/22/25 19:04
Add On- LAB Urgent
Tests Added?: tsh with reflexive t4
Electrocardiogram (*1) Stat
Reason for Study: Other
Other Reason for Exam: chest pain
Cardiac Monitoring- Treatment ONCE
EKG- Treatment ONCE
01/22/25 19:32
Comprehensive Metabolic Panel Urgent
Abnormal Lab Results
01/22/25 01/22/25 01/22/25
18:22 18:34 18:46
RBC 3.37 L 10^6/uL
(4.20-5.40)
Hgb 10.0 L g/dL
(12.0-16.0)
Hct 29.8 L %
(37.0-47.0)
BUN 25 H mg/dl
(7-17)
Glucose 170 H mg/dl
(70-99)
Total Protein
POC Glucose 35 L* mg/dl 155 H mg/dl
(70-99) (70-99)
01/22/25
19:32
RBC
Hgb
Hct
BUN 24 H mg/dl
(7-17)
Glucose 118 H mg/dl
(70-99)
Total Protein 5.6 L g/dl
(6.3-8.2)
POC Glucose
01/22/25 18:34
01/22/25 19:32
Vital Signs
Initial and Last Documented VS:
Initial Vital Signs
Temp Pulse Resp BP Pulse Ox
97.6 F 72 16 155/68 98
01/22/25 18:23 01/22/25 18:23 01/22/25 18:23 01/22/25 18:23 01/22/25 18:23
Last Documented Vital Signs
Temp Pulse Resp BP Pulse Ox
97.6 F 59 7 162/68 97
01/22/25 18:23 01/22/25 20:00 01/22/25 18:45 01/22/25 19:30 01/22/25 20:00
MDM/Problems Addressed
MDM/Problems Addressed:
As documented patient is a 4-year-old female who was sleepy and not acting right when son picked her up to go to dinner. Her blood sugar was reportedly 35 in triage. She presented to the treatment area not alert, sleepy was given a amp of D50 and
became alert. She does recall taking her insulin as scheduled and she does remember eating throughout the day today but was waiting to eat dinner.
She ate here and blood sugar has improved. She denies any recent illness. She is on insulin not on oral meds.. White count normal patient is afebrile hemoglobin minimally low at 10.0, normal sodium potassium BUN minimally elevated creatinine
normal and normal LFTs TSH pending
0: As per nurse patient's heart rate has been bradycardic. Heart rate around the 30s to 40s. EKG done shows Mobitz block type
1914: Case was discussed with Dr. Contreras. When asked about dizziness or lightheadedness patient reports she has been intermittently lightheaded dizzy over the past several weeks and in fact fell because of feeling lightheaded last week. Will
admit to the hospitalist service
Chronic conditions affecting care:
IDDM
*Pulse Oximetry
SaO2: 98
Oxygen Mode of Delivery: Room air
Patient hypoxic: no
*EKG
Interpreted by ED Provider?: Yes
Heart Rate: 39
Rate: bradycardiac
Rhythm: sinus
Interval: second degree mobitz I
Ischemia: non-specific ST changes
*Critical Care Note
Total Time (30-74mins, 75-104mins- exclusive of procedures): Not Applicable
Patient Management
Discussion with other providers: Optical Design Engineer ([facility] )
ED Attending Note
-
Portions of this chart may have been created with voice recognition software.� Occasional wrong word or��sound alike� substitutions may have occurred due to the inherent limitations of voice recognition software.
Discharge Plan
Departure
Patient Disposition: Admit
Date of Disposition: 01/22/25
Time of Disposition: 20:10
Admit to: Telemetry
Admit to doctor: hospitalist
Presentation/result/management discussed w/ accepting MD/DO: Hospitalist
Patient with high blood pressure during this ER visit?: Yes
Condition: Fair
Covid-19: Not Applicable
Discharge Problem:
Hypoglycemia, Secondary heart block
Prescriptions:
No Action
rosuvastatin 20 MG tablet
20 mg PO DAILY
clopidogrel [Plavix] 75 mg Tablet
75 mg PO DAILY
ascorbic acid (vitamin C) [Vitamin C] 1,000 mg Tablet
1,000 mg PO DAILY
levothyroxine [Synthroid] 100 mcg tablet
100 mcg PO DAILY
lisinopril 10 mg tablet
10 mg PO DAILY
insulin aspart U-100 [Novolog FlexPen U-100 Insulin] 100 unit/mL (3 mL) insulin pen
8 unit SC AC
insulin glargine [Basaglar KwikPen U-100 Insulin] 100 unit/mL (3 mL) insulin pen
13 unit SC HS
Referrals:
Karley Noe MD [Family Provider, Internal Medicine]
Interventions
Interventions:
*Risk Screen - Suicide Last Done: 01/22/25 19:21
*General Assessment Last Done: 01/22/25 19:21
*Neglect/Abuse Screening Last Done: 01/22/25 19:21
*ED- Fall Risk Assessment Last Done: 01/22/25 19:21
*ED COVID-19 Vaccine History Last Done: 01/22/25 19:21
ED- Neurological Assessment Last Done: 01/22/25 19:18
Discharge Date and Time
Print Language: SWISS
[2025-01-22 18:48] LABS: Hematocrit 29.8 % (37.0-47.0); Mean Corp Hgb Conc. 33.6 g/dL (33.0-37.0); Mean Corpuscular Hgb 29.7 pg (27.0-31.0); Mean Corpuscular Volume 88.4 fL (81.0-99.0); Mean Platelet Volume 9.4 fL (7.4-10.4); Platelet Count 193 10^3/uL (130-400); Red Blood Cell Count 3.37 10^6/uL (4.20-5.40); Red Cell Dist. Width 13.1 % (11.5-14.5); White Blood Cell Count 5.7 10^3/uL (4.8-10.8)
[2025-01-22 18:48] LABS: Glucose - Point of Care 155 mg/dl (70-99)
[2025-01-22 19:07] LABS: Blood Urea Nitrogen 25 mg/dl (7-17); Calcium 8.8 mg/dl (8.4-10.2); Carbon Dioxide 27 mmol/L (22-30); Chloride 106 mmol/L (98-107); Glucose 170 mg/dl (70-99); Sodium 137 mmol/L (135-145); eGFR > 60.00
[2025-01-22 19:09] LABS: B-Hydroxybutyrate 0.15 mmol/L (0.02-0.27)
[2025-01-22 19:57] LABS: ALT (SGPT) 24 U/L (0-35); AST (SGOT) 31 U/L (14-36); Albumin 3.6 g/dl (3.5-5.0); Alkaline Phosphatase 79 U/L (38-126); Blood Urea Nitrogen 24 mg/dl (7-17); Calcium 8.9 mg/dl (8.4-10.2); Carbon Dioxide 28 mmol/L (22-30); Chloride 107 mmol/L (98-107); Glucose 118 mg/dl (70-99); Potassium 3.7 mmol/L (3.5-5.1); Sodium 138 mmol/L (135-145); Total Bilirubin 0.4 mg/dl (0.2-1.3); Total Protein 5.6 g/dl (6.3-8.2); eGFR > 60.00
--- NOTE | 2025-01-22 20:15 | W.PN.UPDATE ---
Update Note
Progress Note Update
Patient seen in conjunction with AISHA. I agree the findings on history and physical. I concur with the assessment and plan as stated otherwise.
Briefly, this is a 84-year-old with past medical history significant for hypertension, CVA, AFIB, hyperlipidemia, insulin-dependent diabetes, hypothyroid presenting to the emergency department after hypoglycemic episode at home. Found to have
Mobitz type I in the emergency department.
She was previously on insulin pump with pump malfunction with subsequent admission for DKA, now on basal bolus insulin regimen. Patient stated took 8 units of novolog insulin prior to going out to dinner. She had check her bg in am and before lunch
and dinner w/o hypoglycemia. Had breakfast and lunch as usual. Apparently became symptomatic and found to have a blood sugar of 35. By time she arrived in the emergency department she been given 1 amp of D50. Glucose in the emergency department
by fingerstick was 150.
Patient reports recent episodes of lightheadedness for the past several weeks. No syncopal events. She reports that she fell due to the lightheadedness 1 week ago. She denies having any chest pain. She denies having any palpitations. She denies
any lower extremity swelling orthopnea or PND. She denies any changes in her thyroid medications. Patient had a tick bite on 527 and was given single dose of 200 mg of doxycycline at that time. She is currently not having any rash.
She was afebrile, blood pressure of 160/68 with a pulse of 59, satting 97% on room air.
CBC unremarkable, electrolytes with BUN/creatinine stable. Serum glucose 118.
ECG with Mobitz type I, rate of 39.
Assessment and plan
Hypoglycemia - Iatrogenic from insulin given (lantus vs novolog) before dinner. ?error vs change in dose
- admit to telemetry
- sp d50 now with glucose of 155,
- fsg q 1 hour if stable then q 2 hours overnight
- hold lantus,
- low sensitivity sliding scale.
Bradycardia, symptomatic with Mobitz I on ECG. HD stable here. No alba blocking agents. H/o tick bite, possible lyme carditis. Heart rate improving with glycemic improvement.
- telemetry, IVU
- npo after midnight
- iv fluids
- atropine, then iv epinephrine if hemodynamically significant bradycardia
- echo,check tsh/lyme serologies
- doxycycline started, h/o pcn allergies and concern for cephalosporin allergy
- cardiology consulted and notified
HTN
- continue lisinopril daily with hold parameters
IDDM
- management as above for now
DVT PPX - SCDs
Code status - Full code
[2025-01-22 20:17] LABS: TSH Reflex To Free T4 0.26 uIU/ml (0.47-4.68)
--- NOTE | 2025-01-22 20:23 | HPS.HSE ---
Family Physician
-
Family Physician: Karley Noe
Chief Complaint
-
Weakness, drowsy, hyperglycemic in triage
History of Present Illness
84-year-old female brought to the ER by her son due to being drowsy not acting herself well after dinner. In triage she was noted to be hypoglycemic with a blood sugar of 35 she was not responding to questions or name in the ER she was given an amp
of D50 and became awake and alert. She reported taking NovoLog insulin 8 units at 1730 she also takes insulin glargine 13 units at at bedtime. She does report eating earlier in the day. She also reports having lightheadedness over the past
several days and following last week. She was noted to have Mobitz type I heart block on EKG with heart rate ranging from 39 to 59 bpm on the monitor. Cardiology was made aware she will Be kept n.p.o. after midnight for possible pacemaker post
echo. Patient with the patient she does states she was bit by a tick on 12/24/2024 left posterior scalp which her daughter removed. She states the tick was engorged but her daughter got all of it she did take single dose doxycycline 200 mg. She
denies fever, joint pain, rash, bull's-eye appearance. She has no don or erythema in the left posterior scalp however she does have new onset heart block Mobitz type I.
Medical History
Past Medical History
Past Medical History: Reports Other
Additional Past Medical History:
Moderate cognitive impairment with behavioral agitation screams yells per family since 2022 refuses to be assessed
DKA in October 2021 due to malfunctioning pump with catheter kinked.
type I IDDM
Diabetic retinopathy wears reading glasses
Nocturia
HTN
HLD
arthritis
former smoker
Hypothyroidism
TIA 2020 no stroke confirmed by MRI
Diverticulosis/diverticulitis
Glaucoma
Anemia
History of skin cancer
Hx COVID
Past Surgical History: Reports Other
Additional Past Surgical History:
Appendectomy
D&Cs
Bilateral cataract extraction
Glaucoma with Angle surgery
Left knee replacement
Social History
Tobacco: Non-smoker
Alcohol: None
Drug: None
Personal: Single
Living: With Family (Daughter Cassandra)
Employment: Retired
Family History
Family History: Other (Mother history CVA age 70, father history [place], pacemaker age 80s)
Allergies / Home Medications
Allergies reflects when Allergies were last updated in [facility].
Home Medications with original date entered in [facility]
Allergy/Medication List:
Allergies
Allergy/AdvReac Type Severity Reaction Status Date / Time
Cephalosporins Allergy Unknown Pt Verified 01/22/25 18:25
allergic
to
Penicillin.
Allergy
listed as
a
precaution.
Sulfa (Sulfonamide Allergy Unknown Rash Verified 01/22/25 18:25
Antibiotics)
Penicillins Allergy Hives Verified 01/22/25 18:25
Home Medications
rosuvastatin 20 mg tablet 20 mg PO DAILY High cholesterol 11/04/21
clopidogrel 75 mg tablet (Plavix) 75 mg PO DAILY Blood Clot Prevention/Tx 11/23/24
ascorbic acid (vitamin C) 1,000 mg tablet (Vitamin C) 1,000 mg PO DAILY 01/22/25
insulin aspart U-100 100 unit/mL (3 mL) subcutaneous pen (Novolog FlexPen U-100 Insulin aspart) 8 unit SC AC 01/22/25
insulin glargine 100 unit/mL (3 mL) subcutaneous pen (Basaglar KwikPen U-100 Insulin) 13 unit SC HS 01/22/25
levothyroxine 100 mcg tablet (Synthroid) 100 mcg PO DAILY 01/22/25
lisinopril 10 mg tablet 10 mg PO DAILY 01/22/25
Review of Systems
-
History Source: Patient and Family (Son at bedside)
A 12 point ROS was completed and negative except as noted: Yes
Constitutional: Reports Fatigue and Other (Hypoglycemia); Denies Fever or Weight Loss
EENT: Denies Sore Throat or Runny Nose
Respiratory: Denies Cough or Trouble Breathing
Cardiac: Denies Chest Pain, Diaphoresis, Palpitations or Syncope
Abdomen/GI: Denies Abdominal Pain, Nausea, Vomiting, Diarrhea, Constipated or Bloody Stools
: Denies Dysuria, Frequency, Flank Pain, Incontinence, Difficulty Voiding or Urgency
Musculoskeletal: Denies Joint Pain, Joint Swelling or Edema
Skin: Denies Itching or Rash
Neurological: Denies Dizzy, Headache or Weakness
Endocrine: Reports No Symptoms
Hematologic/Lymphatic: Reports No Symptoms
Psych: Reports Calm
Physical Exam
Vital Signs
Vital Signs
Temp Pulse Resp BP Pulse Ox
97.6 F 59 7 157/61 97
01/22/25 18:23 01/22/25 20:00 01/22/25 18:45 01/22/25 20:00 01/22/25 20:00
Physical Exam
General: Comfortable and Conversant; No Fever or Chills
HEENT: NormoCephalic, Anicteric, Moist mucous membranes, PERRLA, [place] Conjunctivae and No Ptosis
Respiratory: Clear; No Wheezes, Rales or Rhonchi
Cardiac: S1/S2 and Bradycardia (Heart rate 39-59); No Murmur, Rub, Gallop or Peripheral Edema
Breast: Deferred by me
GI: Soft, Non Tender, Non Distended, Normal Bowel Sounds and No Hepatosplenomegaly
Rectal: Deferred by Provider
Genito-urinary: Deferred by me
Musculoskeletal: No Clubbing, No Cyanosis and No Edema
Skin: Warm and Dry; No Rash or Jaundice
Neuro: AO x 3, No Motor Deficits, Nonfocal/grossly intact, Cranial Nerves Intact and No Sensory Deficits; No Slurred Speech, Facial Droop, Tremors or Sedated
Psych: Calm
Laboratory Results
-
01/22/25 18:34
01/22/25 19:32
Laboratory Results
Total Bilirubin 0.4 mg/dl (0.2-1.3) 01/22/25 19:32
AST 31 U/L (14-36) 01/22/25 19:32
ALT 24 U/L (0-35) 01/22/25 19:32
Alkaline Phosphatase 79 U/L (38-126) 01/22/25 19:32
Data Reviewed
-
Lab Data: Labs Reviewed by me
Impression/Plan
-
Impression/plan:
Admit to IVU
#Symptomatic hypoglycemia/IDDM since age 36
#Diabetic retinopathy�wears glasses
Patient used to have insulin pump appears to be removed in October due to DKA, bent catheter constant malfunction
Blood sugar 35 corrected with D50
Accu-Cheks every 2 hours x 4 then every 4 hours
- IV dextrose may eat before midnight then n.p.o.
- Hold insulin glargine 13 units at bedtime, hold NovoLog 8 units SQ AC
- Discussed with patient and patient's son she should take insulin when she is actively eating not before hand or driving they should also have an Accu-Chek machine that is on her at all times and family should know how to work it
#Symptomatic bradycardia Mobitz type I
Lightheadedness with fall
- HR ranging 39 to 59 bpm
- Check 2D echo in a.m.
- consult [facility] cardiology
- N.p.o. after midnight for possible pacemaker in a.m.
Will check Lyme titer given history of tick bite 12/24/2024 treated with doxycycline 200 mg x 1
- Will start doxycycline 100 mg twice daily
EKG: Sinus bradycardia with second-degree AV block Mobitz type I, incomplete RBBB heart rate 39 bpm, QTc 359 MS
2D echo 11/05/2021: EF 60%, normal LVS LVSF no wall abnormalities, mild TR
#Chronic anemia�normocytic
Hgb 10 baseline appears 10-11, MCV 87.7
# acclerated HTN�benign
BP 167/146
- IV hydralazine 5 mg now
-Continue lisinopril 10 mg daily with hold parameters
#Hypothyroidism
-Check TSH with free T4 reflex
-Continue levothyroxine 100 mcg p.o. daily
#TIA 2020�no confirmed stroke
-Continue Plavix 75 mg daily, Crestor
#HLD
-Check lipid profile
-Continue rosuvastatin 20 mg daily
#History cognitive impairment with reported history of severe agitation yells and screams�undiagnosed since 2022
Patient is currently awake alert oriented x 3 name, place, year, son and daughter's names
Other PMH:
Chronic nocturia
History of 1 cm nodular opacity right midlung October 2024 admission
Diverticulosis/diverticulitis
Glaucoma
Skin CA
COVID
Arthritis unknown type
Former smoker
DVT prophylaxis
SCDs
patient will be full code for possible permanent pacemaker needed
She may convert back to DNR after procedure.
Patient daniel Torres is her medical and financial power of trust and estates attorney, however is on current vacation her son is taking care of her
[2025-01-22 20:45] LABS: Free T4 1.54 ng/dl (0.78-2.19)
[2025-01-22 20:48] LABS: Glucose - Point of Care 245 mg/dl (70-99)
[2025-01-22] MEDS: NSS 1000 IV (22:18)
[2025-01-22 22:34] LABS: Glucose - Point of Care 268 mg/dl (70-99)
[2025-01-22] MEDS: VIBRAMYCIN 100 MG PO (23:44)
[2025-01-23] VITALS (14 sets, daily range): BP systolic 108–178; BP diastolic 48–94; PULSE 60–68; BMI 21.8
--- NOTE | 2025-01-23 00:54 | PTCARENOTE ---
Rec'd pt. into room 2247 from ED AAOx3, VSS, NSR on the monitor with episodes of second degree HB (Wenckebach) when pt. at rest. Pt. denies any lightheadedness, chest pain or shortness of breath. Ambulates steadily but instructed to call for help
to bathroom, understanding verbalized and pt. compliant with ringing thus far - fall precautions initiated. Oriented to room and plan of care, pt. NPO for possible PPM in AM. Pt. resting quietly.
[2025-01-23 00:55] LABS: Glucose - Point of Care 306 mg/dl (70-99)
--- NOTE | 2025-01-23 01:12 | PTCARENOTE ---
Blood sugar now up to 306; hospitalist AISHA Peña notified, order for 3 units Novalog obtained with instructions to check blood sugar again at 0300. Pt. asymptomatic.
[2025-01-23] MEDS: NOVOLOG FLEXPEN 3 UNITS SC (01:18)
[2025-01-23 03:17] LABS: Glucose - Point of Care 248 mg/dl (70-99)
[2025-01-23 04:03] LABS: % Basophils 0.6 % (0-2); % Eosinophils 3.4 % (0-6); % Immature Granulocytes 0.2 % (0-0.5); % Lymphocytes 22.8 % (20.5-51.1); % Monocytes 11.8 % (1.7-9.3); % Neutrophils 61.2 % (42.2-75.2); Absolute Eosinophils 0.2 10^3/uL (0-0.7); Absolute Lymphocytes 1.1 10^3/uL (1.2-3.4); Absolute Monocytes 0.6 10^3/uL (0.1-0.6); Absolute Neutrophils 3.1 10^3/uL (1.4-6.5); Hematocrit 28.1 % (37.0-47.0); Hemoglobin 9.6 g/dL (12.0-16.0); Mean Corp Hgb Conc. 34.2 g/dL (33.0-37.0); Mean Corpuscular Hgb 29.7 pg (27.0-31.0); Mean Platelet Volume 9.3 fL (7.4-10.4); Nucleated Red Blood Cells % 0 %; Platelet Count 184 10^3/uL (130-400); Red Blood Cell Count 3.23 10^6/uL (4.20-5.40); Red Cell Dist. Width 12.9 % (11.5-14.5)
[2025-01-23 04:24] LABS: ALT (SGPT) 24 U/L (0-35); AST (SGOT) 28 U/L (14-36); Albumin 3.2 g/dl (3.5-5.0); Alkaline Phosphatase 76 U/L (38-126); Blood Urea Nitrogen 18 mg/dl (7-17); Calcium 8.8 mg/dl (8.4-10.2); Carbon Dioxide 26 mmol/L (22-30); Chloride 108 mmol/L (98-107); Estimated Creatinine Clearance 65 ml/min; Glucose 245 mg/dl (70-99); Potassium 4.2 mmol/L (3.5-5.1); Sodium 140 mmol/L (135-145); Total Bilirubin 0.5 mg/dl (0.2-1.3); Total Protein 5.2 g/dl (6.3-8.2); eGFR > 60.00
[2025-01-23] MEDS: SYNTHROID 100 MCG PO (04:58)
[2025-01-23 05:03] LABS: Glucose - Point of Care 229 mg/dl (70-99)
--- NOTE | 2025-01-23 07:57 | CON.CAR ---
Addendum entered and electronically signed by Lj Contreras MD 01/23/25 09:43:
Patient seen and examined
Agree with DOMENICO Randle's note and assessment
Agree with DOMENICO Randle's plan
Reviewed telemetry without significant pauses overnight. Periods of Mobitz 1 type II periodicity. No significant pauses
She remarks that she has been intermittently lightheaded for a period of a few months without any near-syncope or sina syncope. She admits to poor hydration recently as well as low blood sugars for the last few days which have been exacerbating
her symptoms.
Her ECG from the ER demonstrates P to P slowing as well as progressive AV conduction delay at the same time of PP slowing suggesting a vagal mechanism. Her baseline NV interval is relatively normal and when she was talking with us her heart rate
was into the 90s with one-to-one AV conduction with a normal NV interval.
Exam:
Alert and x 3
JVP flat
HEENT normocephalic atraumatic
Cor regular
No respiratory distress
No extremity edema
Remainder of examination per DOMENICO Randle's note
Assessment:
Presentation with hypoglycemia
Concern for dehydration
Intermittent Mobitz 1 type II
type 1 IDDM with diabetic retinopathy
HTN
HLD
hypothyroidism
h/o TIA 2020
Anemia
behavioral agitation per family not worked up
ECHO 01/23/25: pending
Plan:
- Patient presented with hypoglycemia, being corrected per primary service
- Receiving IV fluid as she is hypovolemic
- in setting of above noted to have intermittent Mobitz 1 type II. Particularly prominent during overnight hours. She does report some intermittent dizziness/lightheadedness over the last month, but no syncope. Periodicity by EKG felt most likely
to be related to high vagal tone in setting of above. All of episodes appear to be in overnight hours. No significant pauses or high-grade AV block noted on review of telemetry overnight. She is currently conducting one-to-one into the 90s
- Check echo
- 7-day senior construction project manager as outpatient to assess for high-grade AV block or pauses
- Will place diet order. No indication for permanent pacemaker placement at this time
- Check orthostatic vital signs. She is on lisinopril 10 mg daily as outpatient, which she recently decreased in the setting of her lightheadedness and dizziness with some improvement
- Ambulate patient
-No current indication for permanent pacing
- TSH is low with compensated free T4 on chronic Synthroid. Defer adjustment in dosing to primary service
- Discussed importance of adequate hydration
- Will arrange outpatient EP follow-up
- Pending results of testing, could potentially be discharged later today from cardiac standpoint
- Discussed with nursing
Original Note:
Consultation
Consultation Request
Date/Time Consultation Performed: 01/23/25
Requesting Provider:
Performing Provider: Karen LEONARD
Reason for Consultation: bradycardia
Medical History
-
Chief Complaint: hypoglycemia
History of Present Illness:
Patient is an 84 yo F with PMH of type 1 IDDM with diabetic retinopathy, HTN, HLD, hypothyroidism, h/o TIA 2020, behavioral agitation per family not worked up who presented to [place] due to issues with low blood sugar. Reportedly her
family noted her being drowsy and not acting herself after dinner. She was noted to be hypoglycemic with blood sugar of 35 which improved after amp of D50. She was then noted to have some bradycardia on the monitor with concern for degree of heart
block resulting in cardiology consult. She does relay that she has had some episodes of lightheadedness/dizziness over the last week. She reports she had an episode several weeks ago where she had bent over to pick something up and then stood up
and became dizzy and lost her balance and fell. She denies any episodes of syncope. She reports in the setting of this episode she decreased her lisinopril dose from 20 mg to 10 mg with some improvement. She states she has not been hydrating
well. She does report she had a tick bite on 12/24/2024 and took a single dose of doxycycline, but was without any evidence of bull's-eye rash, fevers, or joint pain. She is currently conducting one-to-one and without complaints of dizziness
PMH:
type 1 IDDM with diabetic retinopathy
HTN
HLD
hypothyroidism
h/o TIA 2020
Anemia
behavioral agitation per family not worked up
Past Medical History
Past Medical History: Other (in HPI)
Social History
Tobacco: Non-Smoker
Alcohol: None
Living: With Family
Family History
Family History: Other (PPM in father in 70s)
Allergies / Home Medications
Allergy/AdvReac Type Severity Reaction Status Date / Time
Cephalosporins Allergy Pt Verified 01/22/25 23:03
allergic
to
Penicillin.
Allergy
listed as
a
precaution.
Penicillins Allergy Hives Verified 01/22/25 18:25
Sulfa (Sulfonamide Allergy Rash Verified 01/22/25 23:03
Antibiotics)
�Medication �Instructions �Recorded �Confirmed �Type
rosuvastatin 20 mg tablet 20 mg PO DAILY High cholesterol 11/04/21 01/22/25 History
clopidogrel 75 mg tablet (Plavix) 75 mg PO DAILY Blood Clot 11/23/24 01/22/25 History
Prevention/Tx
ascorbic acid (vitamin C) 1,000 mg 1,000 mg PO DAILY 01/22/25 01/22/25 History
tablet (Vitamin C)
insulin aspart U-100 100 unit/mL 8 unit SC AC 01/22/25 01/22/25 History
(3 mL) subcutaneous pen (Novolog
FlexPen U-100 Insulin aspart)
insulin glargine 100 unit/mL (3 13 unit SC HS 01/22/25 01/22/25 History
mL) subcutaneous pen (Basaglar
KwikPen U-100 Insulin)
levothyroxine 100 mcg tablet 100 mcg PO DAILY 01/22/25 01/22/25 History
(Synthroid)
lisinopril 10 mg tablet 10 mg PO DAILY 01/22/25 01/22/25 History
Review of Systems
-
History Source: Patient
All other systems: Negative unless noted
Physical Exam
Vital Signs
Temp Pulse Resp BP Pulse Ox
97.7 F 64 17 135/53 97
01/23/25 02:44 01/23/25 03:18 01/23/25 02:44 01/23/25 02:35 01/23/25 02:44
Lab Results
01/23/25 03:25
01/23/25 03:25
Physical Exam
General: No Apparent Distress and Comfortable
HEENT: Normocephalic, Anicteric and Moist Mucous Membranes
Respiratory: Clear and Non Labored Respirations
Cardiac: S1/S2 and Regular Rhythm
GI: Soft, Non Tender, Non Distended and Normal Bowel Sounds
Musculoskeletal: No Clubbing, No Cyanosis and No Edema
Skin: Warm and Dry
Neuro: AO x 3
Impression / Plan
-
Primary Freight Solicitor: none prior to admission, seen initially by Dr. Contreras
Assessment:
Presentation with hypoglycemia
Concern for dehydration
Intermittent Mobitz 1 type II
type 1 IDDM with diabetic retinopathy
HTN
HLD
hypothyroidism
h/o TIA 2020
Anemia
behavioral agitation per family not worked up
ECHO 01/23/25: pending
Plan:
- Patient presented with hypoglycemia, being corrected per primary service
- Receiving IV fluid due to concern for dehydration
- in setting of above noted to have intermittent Mobitz 1 type II. she does report some intermittent dizziness/lightheadedness over the last month, but no syncope. Periodicity by EKG felt most likely to be related to high vagal tone in setting of
above. All of episodes appear to be in overnight hours. No significant pauses or high-grade AV block noted on review of telemetry overnight. She is currently conducting one-to-one
- Check echo
- 7-day senior construction project manager to assess for high-grade AV block or pauses
- Will place diet order. No indication for permanent pacemaker placement at this time
- Check orthostatic vital signs. She is on lisinopril 10 mg daily as outpatient, which she recently decreased in the setting of her lightheadedness and dizziness with some improvement
- Ambulate patient
- TSH is low with compensated free T4 on chronic Synthroid. Defer adjustment in dosing to primary service
- Discussed importance of adequate hydration
- Will arrange outpatient EP follow-up
- Pending results of testing, could potentially be discharged later today from cardiac standpoint
- Discussed with nursing
Data Reviewed
-
EKG: Tracing Personally Visualized and interpreted
Labs: Labs Reviewed by me
Old Records: Reviewed
[2025-01-23] MEDS: ZESTRIL 10 MG PO (08:06)
[2025-01-23] MEDS: PLAVIX 75 MG PO (08:06)
[2025-01-23] MEDS: VITAMIN C 1000 MG PO (08:06)
[2025-01-23] MEDS: CRESTOR 20 MG PO (08:06)
[2025-01-23] MEDS: VIBRAMYCIN 100 MG PO (08:06)
--- NOTE | 2025-01-23 08:08 | W.PN.UPDATE ---
Update Note
Progress Note Update
Full cardiology consultation to follow
Seen patient and examined at the bedside with Beryl Randle PA-C
No current indication for pacing I believe some of her Mobitz 1 type II periodicity are related to high vagal tone and relative dehydration.
Agree with increased hydration as you are we will check an echocardiogram.
She has had no syncope or near syncope and currently does not drive.
Lightheadedness from few months but no significant pauses on telemetry.
We will arrange for a 7-day [employer] ambulatory heart rhythm monitor to look for any longer pauses
She is left-handed. She is not interested in a permanent pacemaker unless absolutely necessary. I did describe pacemaker in broad strokes but do not see any current indications for pacing and would be comfortable with her discharge from a
cardiovascular respective once her other medical issues are addressed satisfactorily by the medical team.
I have no objection to resuming diet and will not need pacemaker procedure today.
[2025-01-23 08:27] LABS: Glucose - Point of Care 261 mg/dl (70-99)
[2025-01-23] MEDS: NSS 1000 IV (08:30)
[2025-01-23 08:58] LABS: Glycohemoglobin (HgbA1c) 7.7 % (4.0-5.6)
[2025-01-23 10:42] LABS: Glucose - Point of Care 421 mg/dl (70-99)
--- NOTE | 2025-01-23 11:09 | PN.DE.MGMTRT ---
Insulin Management
- -
01/23/2025 Diabetes Management Consult
Patient admitted 01/22 due to hypoglycemia, glucose 35. PMH type 1 diabetes, HTN, skin CA, HCL, hypothyroid, CVA, afib. Prior to admission was taking 13 units basaglar @ hs with 8 units novolog AC. A1C 7.7%, cr .6, eGFR > 60.
Patient is awake alert oob in chair able to discuss diabetes care. Anusha is known to me from inpatient and outpatient visits. She had used an insulin pump for many years but recently her daughter felt she could not handle the pump so it was
stopped and basal bolus injections started. Patient states she saw Dr. Do, endocrine, 2 months ago and follow with her regularly.
No insulin was administered since admission. Patient glucose 268 fasting and up to 421.
Will give 4 units NPH now and start 4 units novolog AC with low corrective. Will resume 13 units lantus @ hs tonight. Request 3AM glucose.
Discussed with nurse.
Will follow.
Diabetes History
- -
Type of Diabetes: 1
Pre-Admission Diabetes Regimen
01/22/25 01/22/25 01/23/25
18:34 19:32 03:25
Creatinine 0.6 0.7 0.6
Lab Results
Hemoglobin A1c 7.7 % (4.0-5.6) H 01/23/25 03:25
Insulin Pump Settings
IP Diabetes Regimen
01/22/25 01/22/25 01/22/25
18:22 18:34 18:46
Glucose 170 H
POC Glucose 35 L* 155 H
01/22/25 01/22/25 01/22/25
19:32 20:47 22:33
Glucose 118 H
POC Glucose 245 H 268 H
01/23/25 01/23/25 01/23/25
00:54 03:15 03:25
Glucose 245 H
POC Glucose 306 H 248 H
01/23/25 01/23/25 01/23/25
05:01 08:26 10:40
Glucose
POC Glucose 229 H 261 H 421 H
Meal type: Breakfast
Meal type: Breakfast
Amount consumed: 100%
Amount consumed: 100%
Patient Education
[2025-01-23] MEDS: NOVOLOG FLEXPEN-LOW RESISTANCE 6 UNITS SC (11:15)
[2025-01-23] MEDS: NOVOLOG FLEXPEN 4 UNITS SC ×2 (11:16→17:59)
[2025-01-23] MEDS: HUMULIN N KWIKPEN 4 UNITS SC (11:19)
[2025-01-23 11:20] LABS: Glucose 515 mg/dl (70-99)
[2025-01-23 11:39] LABS: Glucose - Point of Care 481 mg/dl (70-99)
--- NOTE | 2025-01-23 12:02 | CM ---
CM following for DC planning needs.
Patient reports that she resides in a private, 2 STH w/ 1 LUCINA w/ daughter.
She is functionally indep. at baseline w/ ADLs, mobility without the use of any assisted device.
Pt. has history of outpatient therapy at [facility] and may return.
There are no anticipated DC needs at this time.
Plan is for home, no needs.
--- NOTE | 2025-01-23 12:12 | W.PN.HOSP.TC ---
Today's Communication/Plan
-
monitor poc-adjust insulin prn
monitor HR
Monitor BP
Assessment / Plan
Assessment / Plan
General: Comfortable and Conversant; No Fever or Chills
HEENT: NormoCephalic, Anicteric, Moist mucous membranes, [place] Conjunctivae and No Ptosis
Respiratory: Clear; No Wheezes, Rales or Rhonchi
Cardiac: S1/S2 ; No Murmur, Rub, Gallop or Peripheral Edema
GI: Soft, Non Tender, Non Distended, Normal Bowel Sounds and No Hepatosplenomegaly
Musculoskeletal: No Clubbing, No Cyanosis and No Edema
Skin: Warm and Dry; No Rash or Jaundice
Neuro: AO x 3, No Motor Deficits, Nonfocal/grossly intact, Cranial Nerves Intact and No Sensory Deficits; No Slurred Speech, Facial Droop, Tremors or Sedated
Psych: Calm
#Symptomatic hypoglycemia/IDDM since age 36
#Diabetic retinopathy�wears glasses
Blood sugar 35 corrected with D50 on admission
POC elevated now into 400s
A1C 7.9
Insulin restarted
DM BACK UP WORKER following
#Bradycardia Mobitz type I
Lightheadedness with fall
- HR ranging 39 to 59 bpm
- Check 2D echo in a.m.
- consult [facility] cardiology
-No indication for PPM per EP. HR stabilized
- Bradycardia was deemed due to increasing vagal activity
#Chronic anemia�normocytic
Hgb 10 baseline appears 10-11, MCV 87.7
# acclerated HTN�benign
Continue with lisinopril
May need to increase dose of lisinopril.
#Hypothyroidism
-Subclinical
-Continue levothyroxine 100 mcg p.o. daily
#TIA 2020�no confirmed stroke
-Continue Plavix 75 mg daily, Crestor
#HLD
-Check lipid profile
-Continue rosuvastatin 20 mg daily
#History cognitive impairment with reported history of severe agitation yells and screams�undiagnosed since 2022
Patient is currently awake alert oriented x 3 name, place, year, son and daughter's names
Other PMH:
Chronic nocturia
History of 1 cm nodular opacity right midlung October 2024 admission
Diverticulosis/diverticulitis
Glaucoma
Skin CA
COVID
Arthritis unknown type
Former smoker
DVT prophylaxis
SCDs
Anticipated Discharge: > 48 hours
Subjective/Interval History
-
Date of Service: January 23, 2025
Denies any lightheadedness dizziness
Denies any chest pain palpitation
Objective Data
-
Labs:
Laboratory Results
01/23/25 01/23/25
03:25 10:52
WBC 5.0
Hgb 9.6 L
Hct 28.1 L
Plt Count 184
Sodium 140
Potassium 4.2
Chloride 108 H
Carbon Dioxide 26
BUN 18 H
Creatinine 0.6
Glucose 245 H 515 H*
Calcium 8.8
Total Bilirubin 0.5
AST 28
ALT 24
Alkaline Phosphatase 76
Vital Signs:
Vital Signs
Temp Pulse Resp BP Pulse Ox
97.7 F 64 16 176/69 92
01/23/25 11:32 01/23/25 09:21 01/23/25 11:32 01/23/25 09:21 01/23/25 11:32
I&O
01/22/25 01/23/25 01/24/25
06:59 06:59 06:59
Intake Total 1040 / 1040
Balance 1040 / 1040
Data Reviewed
-
Total Time Spent with Patient (in minutes): 55
[2025-01-23 13:28] LABS: Lyme Antibody Screen, EIA Negative (Negative)
[2025-01-23 13:49] LABS: Glucose - Point of Care 306 mg/dl (70-99)
[2025-01-23] MEDS: NOVOLOG FLEXPEN-LOW RESISTANCE 4 UNITS SC (13:50)
[2025-01-23 16:40] LABS: Glucose - Point of Care 146 mg/dl (70-99)
[2025-01-23] MEDS: NOVOLOG FLEXPEN-LOW RESISTANCE SC (16:46)
[2025-01-23] MEDS: LOVENOX 40 MG SC (18:01)
--- NOTE | 2025-01-23 19:33 | PTCARENOTE ---
~[id number]: Handoff report received from nightshift RN. Pt AOx4, NSR 60s-70s on tele, RA satting >90%. Pt denies pain at this time. NSS infusing at 100/hour. Orthostatic BPs obtained per order, see charting for details. Echo completed at bedside per
order. Ax1 with walker OOB to chair. All needs met at this time, call sanders within reach.
~[id number]: Patient seen by DM management SAFE AND VAULT MECHANIC, insulin orders to be adjusted. While waiting for new insulin orders, after eating breakfast, patient blood sugar >400, STAT glucose test drawn and sent to lab, resulted 515. Notified DM SAFE AND VAULT MECHANIC. New insulin
orders placed, and given.
~[id number]: Patient independent to ambulate to bathroom. Patient OOB in chair all day, tolerated well. VSS, glucose levels balanced out. All needs met at this time, call sanders within reach. Handoff report given to nightshift RN.
[2025-01-23 22:52] LABS: Glucose - Point of Care 132 mg/dl (70-99)
[2025-01-23] MEDS: LANTUS 0.13 UNITS SC (23:05)
[2025-01-24 01:44] VITALS: BP 177/64
[2025-01-24 01:52] VITALS: BP 161/64
--- NOTE | 2025-01-24 02:28 | PTCARENOTE ---
Pt. mostly in NSR this shift (awake rate 60's-80's, rate 50's with sleep) except is having periods of Mobitz I & isolated episodes of what appears to be Mobitz II (occasional dropped beats sporadically with consistent NV intervals preceding). Pt.
is always asleep when this happens. Vitals stable and asymptomatic when checked on . Strips shown to DWAYNE Simpson, no new orders for now.
[2025-01-24 03:08] LABS: Glucose - Point of Care 85 mg/dl (70-99)
[2025-01-24 03:09] VITALS: BP 164/69
[2025-01-24 03:19] VITALS: BP 177/60
[2025-01-24] MEDS: APRESOLINE 5 MG IV (03:23)
[2025-01-24] MEDS: SYNTHROID 100 MCG PO (03:30)
[2025-01-24 03:31] VITALS: BMI 22.0
[2025-01-24 03:34] LABS: % Eosinophils 6.7 % (0-6); % Immature Granulocytes 0.4 % (0-0.5); % Lymphocytes 29.7 % (20.5-51.1); % Monocytes 11.2 % (1.7-9.3); Absolute Basophils 0.1 10^3/uL (0-0.2); Absolute Eosinophils 0.3 10^3/uL (0-0.7); Absolute Lymphocytes 1.4 10^3/uL (1.2-3.4); Absolute Monocytes 0.5 10^3/uL (0.1-0.6); Absolute Neutrophils 2.5 10^3/uL (1.4-6.5); Hematocrit 32.8 % (37.0-47.0); Hemoglobin 11.1 g/dL (12.0-16.0); Mean Corp Hgb Conc. 33.8 g/dL (33.0-37.0); Mean Corpuscular Hgb 29.8 pg (27.0-31.0); Mean Corpuscular Volume 88.2 fL (81.0-99.0); Mean Platelet Volume 9.4 fL (7.4-10.4); Nucleated Red Blood Cells % 0 %; Platelet Count 221 10^3/uL (130-400); Red Blood Cell Count 3.72 10^6/uL (4.20-5.40); Red Cell Dist. Width 13.2 % (11.5-14.5); White Blood Cell Count 4.8 10^3/uL (4.8-10.8)
[2025-01-24 03:49] LABS: ALT (SGPT) 24 U/L (0-35); AST (SGOT) 24 U/L (14-36); Albumin 3.8 g/dl (3.5-5.0); Alkaline Phosphatase 98 U/L (38-126); Blood Urea Nitrogen 17 mg/dl (7-17); Calcium 9.5 mg/dl (8.4-10.2); Carbon Dioxide 27 mmol/L (22-30); Chloride 111 mmol/L (98-107); Estimated Creatinine Clearance 56 ml/min; Glucose 76 mg/dl (70-99); Potassium 4.1 mmol/L (3.5-5.1); Sodium 142 mmol/L (135-145); Total Bilirubin 0.4 mg/dl (0.2-1.3); Total Protein 5.9 g/dl (6.3-8.2); eGFR > 60.00
[2025-01-24 04:41] VITALS: BP 151/76
[2025-01-24 07:46] VITALS: BP 177/71
[2025-01-24 07:51] LABS: Glucose - Point of Care 162 mg/dl (70-99)
[2025-01-24] MEDS: CRESTOR 20 MG PO (07:51)
[2025-01-24] MEDS: ZESTRIL 10 MG PO (07:51)
[2025-01-24] MEDS: VITAMIN C 1000 MG PO (07:52)
[2025-01-24] MEDS: PLAVIX 75 MG PO (07:52)
--- NOTE | 2025-01-24 08:00 | PN.DE.MGMTRT ---
Insulin Management
- -
01/24/2025: Diabetes Management Follow up
Patient admitted 01/22 due to hypoglycemia, glucose 35. PMH: type 1 diabetes, HTN, skin CA, HCL, hypothyroid, CVA, afib. Prior to admission was taking 13 units Basaglar @ hs with 8 units NovoLog AC. A1C 7.7%, cr .6, eGFR > 60.
Patient is awake alert oob in chair able to discuss diabetes care. Anusha is known to me from inpatient and outpatient visits. She had used an insulin pump for many years but recently her daughter felt she could not handle the pump so it was
stopped and basal bolus injections started. Patient states she saw Dr. Do, endocrine, 2 months ago and follow with her regularly. No insulin was administered on admission, pt's glucose trended up to 421 yesterday.
01/23 Glucose improved later in the day after starting basal bolus regimen.
Receive Basaglar 13 units @ HS, 3 AM glucose was 76V, 85 POC. Fasting glucose 162 POC this AM, patient received 4 units NovoLog and an additional 1 unit corrective with breakfast. Will increase AC NovoLog to 5 units. Cont 13 units Lantus @ HS.
Discussed with Nurse. Will cont to follow.
Had an extensive discussion with pt about consistent glucose monitoring and only taking her rapid acting insulin when she is ready to eat a meal, NOT 1 hour before eating, which is what happened this time and let to the Hypoglycemic episode. She was
apparently going to her son's house for dinner and took her insulin 1 hr before leaving her house.
Pt was instructed to closely monitor her blood sugars and keep a glucose log. Patient will call the Diabetes office on Monday to discuss and adjust her insulin dose if necessary.
Diabetes History
- -
Type of Diabetes: 1
Pre-Admission Diabetes Regimen
01/24/25
03:14
Creatinine 0.7
Lab Results
Hemoglobin A1c 7.7 % (4.0-5.6) H 01/23/25 03:25
Insulin Pump Settings
IP Diabetes Regimen
01/23/25 01/23/25 01/23/25
08:26 10:40 10:52
Glucose 515 H*
POC Glucose 261 H 421 H
01/23/25 01/23/25 01/23/25
11:37 13:48 16:38
Glucose
POC Glucose 481 H* 306 H 146 H
01/23/25 01/24/25 01/24/25
22:51 03:07 03:14
Glucose 76
POC Glucose 132 H 85
01/24/25
07:50
Glucose
POC Glucose 162 H
Meal type: Dinner
Meal type: Lunch
Meal type: Breakfast
Amount consumed: 100%
Amount consumed: 100%
Amount consumed: 100%
Patient Education
[2025-01-24] MEDS: NOVOLOG FLEXPEN-LOW RESISTANCE 1 UNITS SC (08:38)
[2025-01-24] MEDS: NOVOLOG FLEXPEN 4 UNITS SC (08:38)
--- NOTE | 2025-01-24 10:06 | W.PN.HOSP.TC ---
Today's Communication/Plan
-
d/w with cards. Heart monitor prior to dc. increase lisinopril .
Assessment / Plan
Assessment / Plan
General: Comfortable and Conversant; No Fever or Chills
HEENT: NormoCephalic, Anicteric, Moist mucous membranes, [place] Conjunctivae and No Ptosis
Respiratory: Clear; No Wheezes, Rales or Rhonchi
Cardiac: S1/S2 ; No Murmur, Rub, Gallop or Peripheral Edema
GI: Soft, Non Tender, Non Distended, Normal Bowel Sounds and No Hepatosplenomegaly
Musculoskeletal: No Clubbing, No Cyanosis and No Edema
Skin: Warm and Dry; No Rash or Jaundice
Neuro: AO x 3, No Motor Deficits, Nonfocal/grossly intact, Cranial Nerves Intact and No Sensory Deficits; No Slurred Speech, Facial Droop, Tremors or Sedated
Psych: Calm
#Symptomatic hypoglycemia/IDDM since age 36
#Diabetic retinopathy�wears glasses
Blood sugar 35 corrected with D50 on admission
POC elevated now into 400s
A1C 7.9
Insulin restarted
DM SAXOPHONE TEACHER following
Follows with Dr. Do as outpatient.
#Bradycardia Mobitz type I
Lightheadedness with fall
- HR in 70s
- ECHO noted
-No indication for PPM per EP. HR stabilized
- Bradycardia was deemed due to increasing vagal activity
#Chronic anemia�normocytic
Hgb 10 baseline appears 10-11, MCV 87.7
# acclerated HTN�benign
Continue with lisinopril
May need to increase dose of lisinopril to 15mg and Op f/u with pcp.
#Hypothyroidism
-Subclinical
-Continue levothyroxine 100 mcg p.o. daily
#TIA 2020�no confirmed stroke
-Continue Plavix 75 mg daily, Crestor
#HLD
-Check lipid profile
-Continue rosuvastatin 20 mg daily
#History cognitive impairment with reported history of severe agitation yells and screams�undiagnosed since 2022
Patient is currently awake alert oriented x [address], [address], year, son and daughter's names
Other PMH:
Chronic nocturia
History of 1 cm nodular opacity right midlung October 2024 admission
Diverticulosis/diverticulitis
Glaucoma
Skin CA
COVID
Arthritis unknown type
Former smoker
DVT prophylaxis
SCDs
d/w with cards. Heart monitor prior to dc. increase lisinopril .
More than 30 minutes spent in discharge including
Final examination of the patient
Summarizing hospital stay
Instructions for continuing care to all relevant caregivers
Preparation of discharge records, prescriptions, and referral forms
Total time spent (in minutes): 52
Anticipated Discharge: Today
Subjective/Interval History
-
Date of Service: January 24, 2025
ambulating in room without difficulty
Objective Data
-
Labs:
Laboratory Results
01/24/25
03:14
WBC 4.8
Hgb 11.1 L
Hct 32.8 L
Plt Count 221 D
Sodium 142
Potassium 4.1
Chloride 111 H
Carbon Dioxide 27
BUN 17
Creatinine 0.7
Glucose 76
Calcium 9.5
Total Bilirubin 0.4
AST 24
ALT 24
Alkaline Phosphatase 98
Vital Signs:
Vital Signs
Temp Pulse Resp BP Pulse Ox
98 F 65 16 177/71 98
01/24/25 07:43 01/24/25 07:51 01/24/25 07:43 01/24/25 07:51 01/24/25 07:43
I&O
01/23/25 01/24/25 01/25/25
06:59 06:59 06:59
Intake Total 1040 / 1040 1420 / 1420
Balance 1040 / 1040 1420 / 1420
--- NOTE | 2025-01-24 10:11 | W.DCSUMMARY ---
Discharge Summary
Discharge Data
Date of Admission: 01/22/25
Date of Discharge: 01/24/25
-
Pending Results: No
Hospital Course
84 female past medical history of chronic anemia, hypertension, hypothyroidism, TIA, hyperlipidemia, diabetes mellitus is presenting from home with weakness. Patient was found to have symptomatic hypoglycemia in the ER status post correction of
blood glucose. Patient was also found to be bradycardic. Cardiology was consulted. Cardiology felt patient bradycardia due to increased vagal activity and no current indication for pacemaker implantation. Cardiology recommended to place heart
monitor upon discharge and patient will to follow-up outpatient with cardiology. Patient insulin was restarted. Patient Premeal insulin was decreased. Patient blood glucose remained stabilized. Patient also with elevated blood pressure and plan
was to increase lisinopril to 15 mg. Patient stayed on 20 mg lisinopril she was feeling dizzy at home. Recommended follow-up with primary doctor as outpatient.
Discharge Plan
-
Patient Disposition: Home with Home Care
Discharge Diagnosis/Procedures: Symptomatic hypoglycemia
Diabetes mellitus with hyperglycemia
Bradycardia
Condition: Fair
Diet: Diabetic, Carb Controlled
Driving Restrictions: As prior to admission
Activity Restrictions/Additional Instructions:
Your A1c was 7.7 in 01/23/2025.
Your TSH was 0.26 with free T4 at 1.54
Discussed about results with your primary neonatal specialist
ALSO RECOMMEND OUTPATIENT SLEEP STUDY
Referrals:
Chiquita Do MD [Consulting Staff, Endocrinology]
Lj Contreras MD [Active, Cardiology] - 02/12/25 2:00 pm
Referral Note: You have a cardiology follow-up appointment at the [place] office. Please call with questions
Karley Noe MD [Family Provider, Internal Medicine] - in less than 1 week
Referral Note: ALSO RECOMMEND OUTPATIENT SLEEP STUDY
Additional Discharge Medication Instructions: Lisinopril dose was increased to 15 mg daily
Prescriptions:
Continued
rosuvastatin 20 MG tablet
20 mg PO DAILY
clopidogrel [Plavix] 75 mg Tablet
75 mg PO DAILY
ascorbic acid (vitamin C) [Vitamin C] 1,000 mg Tablet
1,000 mg PO DAILY
levothyroxine [Synthroid] 100 mcg tablet
100 mcg PO DAILY
insulin glargine [Basaglar KwikPen U-100 Insulin] 100 unit/mL (3 mL) insulin pen
13 unit SC HS
insulin aspart U-100 [Novolog FlexPen U-100 Insulin] 100 unit/mL (3 mL) insulin pen
4 unit SC AC Qty: 0 0RF
Changed
lisinopril 10 mg tablet
15 mg PO DAILY Qty: 0 0RF
Discharge Orders:
Discharge Patient (As Directed); Ordered 01/24/25
Ordered By: Brady Santos
Care Plan Goals
Care Plan Goals:
Problem: Readiness for enhanced knowledge related to diagnosis and treatment plan
Goal: Understand your diagnosis and treatment plan needs, including medications if applicable.
Instructions: Know your diagnosis, underlying causes and treatment plan options, including medications if applicable. Consult with your health care team to learn about your diagnosis and treatment plan, including medications if applicable.
Discharge Date and Time
Print Language: GUYANESE
[2025-01-24] MEDS: ZESTRIL 5 MG PO (10:16)
--- NOTE | 2025-01-24 11:43 | W.PN.CARDCBS ---
Today's Communication / Plan
-
7 day bardy monitor
follow BPs as OP
Op cardiac follow up arranged
Impression / Plan
-
Primary Education Counselor: none prior to admission, seen initially by Dr. Contreras
Assessment:
Presentation with hypoglycemia
Concern for dehydration
Intermittent Mobitz 1 type II
type 1 IDDM with diabetic retinopathy
HTN
HLD
hypothyroidism
h/o TIA 2020
Anemia
behavioral agitation per family not worked up
ECHO 01/23/25: EF 65 to 70%, trace MR, PAP 35 to 40 mmHg, mild CO, IVC normal size but did not not demonstrate normal respiratory variation, no evidence of shunting and intra-atrial septum
Plan:
-Patient presented with hypoglycemia, being corrected per primary service. novolog dose decreased
-tele overnight reviewed. she continues with occasional brief Mobitz 1 type II as well as 1 brief episode of 2:1, all during overnight hours while sleeping and patient asymptomatic. No pauses. She has had no dizziness/lightheadedness and has been
ambulatory without difficulty.
-echo with results as above, EF normal
-7 day bus driver/monitor has been placed. instructions given regarding pressing button for symptoms of lightheadedness or dizziness
-she was instructed if she has syncope or presyncope to come to ER for evaluation
-BPs elevated this morning however she states she has been under increased stress as her children did not let her dog out and she was frustrated about this. she was given extra 5mg lisinopril this AM. she will follow BPs as OP. her lisinopril had
just been decreased to 10mg daily due to dizziness as OP
-TSH is low with compensated free T4 on chronic Synthroid. Defer adjustment in dosing to primary service
-Discussed importance of adequate hydration
-OP cardiac follow up arranged
-for DC today
-Discussed with nursing. discussed with hospitalist
Progress Note - Education Counselor
Subjective
Date of Service: January 24, 2025
no lightheadedness or dizziness overnight
Objective
Labs:
01/24/25 03:14
01/24/25 03:14
Labs
Hgb 11.1 g/dL (12.0-16.0) L 01/24/25 03:14
Hct 32.8 % (37.0-47.0) L 01/24/25 03:14
Plt Count 221 10^3/uL (130-400) D 01/24/25 03:14
Sodium 142 mmol/L (135-145) 01/24/25 03:14
Potassium 4.1 mmol/L (3.5-5.1) 01/24/25 03:14
BUN 17 mg/dl (7-17) 01/24/25 03:14
Creatinine 0.7 mg/dL (0.6-1.0) 01/24/25 03:14
Glucose 76 mg/dl (70-99) 01/24/25 03:14
Vital Signs and I&O:
Vital Signs
Temp Pulse Resp BP Pulse Ox
98 F 75 16 173/75 98
01/24/25 07:43 01/24/25 10:16 01/24/25 07:43 01/24/25 10:16 01/24/25 07:43
Vital Signs
Temp Pulse Resp BP Pulse Ox
98 F 75 16 173/75 98
01/24/25 07:43 01/24/25 10:16 01/24/25 07:43 01/24/25 10:16 01/24/25 07:43
Intake & Output
01/22/25 01/23/25 01/24/25 01/25/25
07:59 07:59 07:59 07:59
Intake Total 1040 / 1040 1420 / 1420
Balance 1040 / 1040 1420 / 1420
Physical Exam
Physical Exam
GEN: No distress, awake, alert, oriented x3. sitting in chair. bardy monitor on chest
HEENT: supple, anicteric, mmm, eomi
LUNGS: no audible wheezes
CV: Reg on tele
EXT: No edema
NEURO: Gross non-focal
SKIN: No rash
--- NOTE | 2025-01-24 12:14 | CM ---
CM following for DC planning needs.
DC plan is for home, no needs.
Patient for DC today. Met w/ patient. She feels well and prepared for discharge.
[2025-01-24 12:41] LABS: Glucose - Point of Care 134 mg/dl (70-99)
[2025-01-24] MEDS: NOVOLOG FLEXPEN-LOW RESISTANCE SC (13:41)
[2025-01-24] MEDS: NOVOLOG FLEXPEN 5 UNITS SC (13:42)
--- NOTE | 2025-01-24 14:51 | PTCARENOTE ---
~[id number]: Handoff repoert received from nightshift RN. Pt Aox4, NSR on tele 70s-80s, RA satting >90%. SBP 170s, scheduled lisinipril given with no effect. Pt denies pain at this time. OOB in chair for breakfast. Patient independent to bathroom.
Spoke with Gustavo MURRAY about Pt heart rhythm overnight going in to Mobitz I and II, no new orders at this time, Pt to f/u outpatient. Hospitalist at bedside roundind, patient SBP remains 170s, new orders placed. Education provided on correct
timing of short-acting insulin, patient verbalizes understanding. All needs met at this time, call sanders within reach.
~[id number]: patient OOB in chair in stable condition. Additional ordered 5mg lisinopril given, SBP 150s. Outpt heart monitor placed by office nurse and instructions given to patient. All needs met at this time, all sanders within reach.
~[id number]: Daughter at bedside, dicharge paperwork reviewed with patient and daughter, all questions answered. Patient d/c'd in stable condition and taken to lobby in wheelchair.
== END 2025-01-24 14:50 | disposition home or self-care (01) | DRG 639 ==
LOC: IVU 21:49
PROVIDERS: Clinical Nurse Specialist Family Health; Emergency Medicine; Nurse Practitioner; Nurse Practitioner Acute Care; ADMITTING PHYSICIAN Internal Medicine; ATTENDING PHYSICIAN Hospitalist; CONSULT PHYSICIAN Internal Medicine Cardiovascular Disease; EMERGENCY PHYSICIAN Emergency Medicine; FAMILY PHYSICIAN Internal Medicine
DX: E10.649 Type 1 diabetes mellitus with hypoglycemia without coma (principal); E10.319 Type 1 diabetes mellitus with unspecified diabetic retinopathy without macular edema; D64.9 Anemia, unspecified; I44.1 Atrioventricular block, second degree; E03.9 Hypothyroidism, unspecified; E78.00 Pure hypercholesterolemia, unspecified; H40.9 Unspecified glaucoma; R41.89 Other symptoms and signs involving cognitive functions and awareness; R35.1 Nocturia; E10.65 Type 1 diabetes mellitus with hyperglycemia; E86.1 Hypovolemia; I10 Essential (primary) hypertension; M19.90 Unspecified osteoarthritis, unspecified site; Z96.652 Presence of left artificial knee joint; Z87.891 Personal history of nicotine dependence; Z79.4 Long term (current) use of insulin; Z85.828 Personal history of other malignant neoplasm of skin; Z86.73 Personal history of transient ischemic attack (TIA), and cerebral infarction without residual deficits; Z87.19 Personal history of other diseases of the digestive system; Z79.02 Long term (current) use of antithrombotics/antiplatelets; Z79.890 Hormone replacement therapy; Z86.16 Personal history of COVID-19; Z98.41 Cataract extraction status, right eye; Z98.42 Cataract extraction status, left eye; Z88.1 Allergy status to other antibiotic agents; Z82.49 Family history of ischemic heart disease and other diseases of the circulatory system; Z82.3 Family history of stroke; Z88.0 Allergy status to penicillin; Z88.2 Allergy status to sulfonamides
CPT/HCPCS: 80048; 80053; 82010; 82947; 82962; 83036; 84439; 84443; 85025; 85027; 86618; 93005; 93306; 97162; 99285; J1610

== ENCOUNTER → 2025-03-10 15:08 | Outpatient (REF) | payer MEDICARE, OTHER, SELFPAY | LOC: CLAB 15:08 | PROVIDERS: ATTENDING PHYSICIAN Nurse Practitioner | DX: R39.9 Unspecified symptoms and signs involving the genitourinary system (principal) | CPT/HCPCS: 87086 ==

== ENCOUNTER → 2025-04-01 10:09 | Outpatient (REF) | payer MEDICARE, OTHER, SELFPAY | LOC: HWRAD 10:09 | PROVIDERS: ATTENDING PHYSICIAN Internal Medicine Critical Care Medicine; FAMILY PHYSICIAN Internal Medicine | DX: R91.1 Solitary pulmonary nodule (principal) | CPT/HCPCS: 71250 ==

== ENCOUNTER → 2025-05-20 07:43 | Outpatient (REF) | payer MEDICARE, OTHER, SELFPAY ==
[2025-05-20 09:27] LABS: Glycohemoglobin (HgbA1c) 8.9 % (4.0-5.6)
[2025-05-20 09:51] LABS: ALT (SGPT) 23 U/L (0-35); AST (SGOT) 29 U/L (14-36); Albumin 4.3 g/dl (3.5-5.0); Alkaline Phosphatase 99 U/L (38-126); Blood Urea Nitrogen 20 mg/dl (7-17); Calcium 9.5 mg/dl (8.4-10.2); Carbon Dioxide 31 mmol/L (22-30); Chloride 104 mmol/L (98-107); Glucose 52 mg/dl (70-99); Potassium 3.7 mmol/L (3.5-5.1); Sodium 142 mmol/L (135-145); Total Protein 6.8 g/dl (6.3-8.2); eGFR > 60.00
[2025-05-20 11:08] LABS: Microalb - Urine Creatinine 55.200 mg/dl
[2025-05-20 11:17] LABS: Microalbumin, Random Urine 2.1 mg/dl (0.6-1.7)
== END ==
LOC: REG 07:43
PROVIDERS: ATTENDING PHYSICIAN Internal Medicine Endocrinology, Diabetes & Metabolism
DX: E10.65 Type 1 diabetes mellitus with hyperglycemia (principal)
CPT/HCPCS: 36415; 80053; 82043; 82570; 83036; 84439; 84443

== ENCOUNTER 2025-06-08 01:36 | Emergency (ER) | payer MEDICARE, OTHER, SELFPAY ==
[2025-06-08 01:37] VITALS: BP 168/75
--- NOTE | 2025-06-08 01:47 | ED.GENMED ---
History of Present Illness
General
Chief Complaint: Nose Bleed
Source: patient
Exam Limitations: none
Time Seen by Provider: 06/08/25 01:45
Nursing documentation reviewed up to this point in time: agreed with
History of Present Illness
History of Present Illness:
Patient is an 84-year-old female with history of CVA, hypertension, hyperlipidemia, insulin-dependent diabetes who presents to the emergency department for evaluation of multiple nosebleeds over the past few days. Tonight, patient states she was
sitting on the couch when she had a sudden onset of bleeding mainly from the left side of her nose. She attempted to hold pressure however bleeding persisted for about 1.5 hours. She states that she saw a large clot. Bleeding stopped prior to
arrival to emergency department.
Of note, patient reports a similar episode yesterday morning. She describes significant nosebleeding which did fortunately stop on its own.
Patient denies any chest pain, shortness of breath, lightheadedness. No headache, visual changes. No abnormal bruising. She denies any recent head injury or trauma.
Patient denies history of prior nosebleeds. She does state that she recently turned the heat on in her home and she has it set at 77 degrees.
Past History
Past History
ED Past Medical History: Cancer (Skin CA), HTN, Hypercholesterolemia, IDDM, Hypothyroidism and Other (Arthritis, TIA, Diverticulitis, Glaucoma, Anemia, )
ED Past Surgical History: Appendectomy, Gynecological (D&C), Orthopedic (Left knee replacement) and Other (Ankush cataracts)
Social History
Tobacco: Former smoker
Alcohol: Occasional
Drug: None
Personal:
Living: alone
Employment: Retired
Review of Systems
Review of Systems
Allergies reviewed?: Yes
All Other Systems: ROS reviewed and negative except as documented in HPI and ROS
Phy Exam
Physical Exam
Physical Exam:
Vitals: Hypertensive, otherwise vital signs stable. Afebrile
General: Patient is well appearing, no acute distress
Skin: Warm and dry, no rashes, unusual bruising, or petechiae
Head: Normocephalic, atraumatic
Nose: No active bleeding of bilateral naris. Minimal dried blood of left nasal ala. No visible clot or septal hematoma.
Throat: No blood in posterior pharynx, protecting airway
Neck: Normal ROM, no cervical spine tenderness
Cardiac: Regular rate and rhythm
Pulm: No apparent respiratory distress. Lungs clear bilaterally
Abdomen: Nondistended
Extremities: No evidence of cyanosis or edema
Neuro: Grossly intact
Psychiatric: Normal affect.
Course
Orders/Labs/Results
Orders:
Orders
06/08/25 02:17
Basic Metabolic Panel Urgent
Complete Blood Count/With Diff Urgent
Abnormal Lab Results
06/08/25
02:17
RBC 3.67 L 10^6/uL
(4.20-5.40)
Hgb 10.7 L g/dL
(12.0-16.0)
Hct 32.0 L %
(37.0-47.0)
Monocytes % 9.7 H %
(1.7-9.3)
BUN 38 H mg/dl
(7-17)
Glucose 263 H mg/dl
(70-99)
06/08/25 02:17
06/08/25 02:17
Vital Signs
Initial and Last Documented VS:
Initial Vital Signs
Temp Pulse Resp BP Pulse Ox
97.6 F 68 16 168/75 98
06/08/25 01:37 06/08/25 01:37 06/08/25 01:37 06/08/25 01:37 06/08/25 01:37
Last Documented Vital Signs
Temp Pulse Resp BP Pulse Ox
97.6 F 67 18 142/83 98
06/08/25 01:37 06/08/25 02:10 06/08/25 02:10 06/08/25 02:10 06/08/25 01:47
MDM/Problems Addressed
Differential Diagnosis Includes:
Not limited to: Anterior epistaxis, posterior epistaxis, mechanical trauma, thrombocytopenia, anemia, etc.
MDM/Problems Addressed:
82-year-old female presents w/ history of multiple nosebleeds over the past two days. She is on Plavix. No history of recent trauma. No associated lightheadedness, shortness of breath, weakness. Bleeding stopped prior to arrival to ED today. She is
hemodynamically stable. On exam, patient very well appearing and pleasant. There�s no active bleeding in b/l nares although a small amount of dried blood noted at left nasal ala. No visualized clot. No blood in posterior pharynx. Cardio/pulmonary
assessment unremarkable. She has no abnormal bruising, rash, or petichiae
Impression is minor epistaxis that resolved prior to arrival to ED. Likely secondary to dry environment and exacerbated by Plavix use.
Given patient reports multiple nosebleeds over the past two days with no history of similar� will check basic labs t/o rule out any thrombocytopenia.
Update: Labs are reviewed. Cell counts fine. Mild anemia, which is stable. Platelet level normal. Chemistry reveals elevation of BUN and hyperglycemia. Patient is an insulin depend diabetic. She follows w/ endocrinology. She said she took her
insulin just prior to coming to ED and feels it is likely trending down. Advised patient to stay well hydrated, monitor closely and follow up with endocrinology with concern of poorly controlled diabetes based on multiple elevated blood glucose
levels in ED.
Patient has been monitored in the emergency department without any evidence of rebleeding of nose. At this time � stable for discharge home. Discussed keeping nose moist with humidifier, etc. Discussed importance of continuing plavix as directed.
Advised follow-up with primary care provider and strict return precautions. Patient comfortable with plan discharged home in stable condition.
Chronic conditions affecting care:
History of TIA on Plavix
Acute Exacerbation and/or Progression of Chronic Illness:
N/A
*Pulse Oximetry
SaO2: 98
Oxygen Mode of Delivery: Room air
Patient hypoxic: no
*EKG
Interpreted by ED Provider?: NA
*Primary Substance Abuse Counselor Interpretation
Rate: Primary Substance Abuse Counselor- N/A
*Critical Care Note
Total Time (30-74mins, 75-104mins- exclusive of procedures): Not Applicable
ED Attending Note
-
Portions of this chart may have been created with voice recognition software.� Occasional wrong word or��sound alike� substitutions may have occurred due to the inherent limitations of voice recognition software.
Discharge Plan
Departure
Patient Disposition: Home (Routine Discharge)
Date of Disposition: 06/08/25
Time of Disposition: 03:02
Patient with high blood pressure during this ER visit?: Yes
Condition: Good
Discharge Problem:
History of epistaxis
Instructions: Nosebleeds (DC), BLOOD PRESSURE
Prescriptions:
No Action
rosuvastatin 20 MG tablet
20 mg PO DAILY
clopidogrel [Plavix] 75 mg Tablet
75 mg PO DAILY
ascorbic acid (vitamin C) [Vitamin C] 1,000 mg Tablet
1,000 mg PO DAILY
levothyroxine [Synthroid] 100 mcg tablet
100 mcg PO DAILY
insulin glargine [Basaglar KwikPen U-100 Insulin] 100 unit/mL (3 mL) insulin pen
13 unit SC HS
lisinopril 10 mg tablet
15 mg PO DAILY Qty: 0 0RF
insulin aspart U-100 [Novolog FlexPen U-100 Insulin] 100 unit/mL (3 mL) insulin pen
5 unit SC AC Qty: 5 0RF
Referrals:
NONE,* [Family Provider, Internal Medicine]
Activity Restrictions/Additional Instructions:
RETURN TO THE EMERGENCY DEPARTMENT WITH ANY RECURRENT OR PERSISTENT NOSEBLEEDS THAT WILL NOT STOP AT HOME, SEVERE HEADACHE, HEAD TRAUMA, DIZZINESS, LIGHTHEADEDNESS, SHORTNESS OF BREATH, SIGNIFICANT WEAKNESS, WORSENING IN CURRENT SYMPTOMS, OR ANY
OTHER CONCERNS
- As discussed, your blood counts showed a mild anemia which appears stable. Your platelet level was normal today in the emergency department. Your glucose level was elevated. Please continue to stay well-hydrated, take your insulin as prescribed
and follow-up with endocrinology.
- Fortunately, your nose stopped bleeding prior to arrival to the emergency department. You were monitored here without any evidence of rebleed.
- Your increased frequency of nosebleeding may be secondary to a dry environment. Please keep nose moist with saline nasal spray and/or small amount of Vaseline. You can use a humidifier at home to add moisture to the air.
- Continue to take your Plavix as instructed.
- Follow-up with primary care for further evaluation/management
Monitor your symptoms closely and return to the emergency department with any acute worsening/new symptoms or any other concerns
Interventions
Interventions:
*Risk Screen - Suicide Last Done: 06/08/25 01:37
*General Assessment Last Done: 06/08/25 01:37
*Neglect/Abuse Screening Last Done: 06/08/25 02:30
*ED- Fall Risk Assessment Last Done: 06/08/25 02:29
*ED COVID-19 Vaccine History Last Done: 06/08/25 02:29
*ED Influenza Vaccine History Last Done: 06/08/25 02:29
*Nursing Disposition Last Done: 06/08/25 03:23
ED-EENT Assessment Last Done: 06/08/25 02:25
Discharge Date and Time
Discharge Date/Time: 06/08/25 03:23
Print Language: KHMER
[2025-06-08 02:10] VITALS: BP 142/83
[2025-06-08 02:25] LABS: Hematocrit 32.0 % (37.0-47.0); Hemoglobin 10.7 g/dL (12.0-16.0); Mean Corp Hgb Conc. 33.4 g/dL (33.0-37.0); Mean Corpuscular Volume 87.2 fL (81.0-99.0); Nucleated Red Blood Cells % 0 %; Platelet Count 207 10^3/uL (130-400); Red Cell Dist. Width 13.5 % (11.5-14.5)
[2025-06-08 02:47] LABS: Blood Urea Nitrogen 38 mg/dl (7-17); Calcium 9.6 mg/dl (8.4-10.2); Carbon Dioxide 27 mmol/L (22-30); Chloride 102 mmol/L (98-107); Glucose 263 mg/dl (70-99); Potassium 4.7 mmol/L (3.5-5.1); Sodium 135 mmol/L (135-145); eGFR > 60.00
== END 2025-06-08 03:23 | disposition home or self-care (01) ==
LOC: EMR 01:36
PROVIDERS: Physician Assistant; EMERGENCY PHYSICIAN Emergency Medicine
DX: R04.0 Epistaxis (principal); D64.9 Anemia, unspecified; E10.65 Type 1 diabetes mellitus with hyperglycemia; I10 Essential (primary) hypertension; E78.00 Pure hypercholesterolemia, unspecified; E03.9 Hypothyroidism, unspecified; H40.9 Unspecified glaucoma; M19.90 Unspecified osteoarthritis, unspecified site; Z79.02 Long term (current) use of antithrombotics/antiplatelets; Z79.4 Long term (current) use of insulin; Z86.73 Personal history of transient ischemic attack (TIA), and cerebral infarction without residual deficits; Z87.891 Personal history of nicotine dependence; Z85.820 Personal history of malignant melanoma of skin; Z96.652 Presence of left artificial knee joint
CPT/HCPCS: 99283; 80048; 85025

== ENCOUNTER 2025-07-27 11:15 | Emergency (ER) | payer MEDICARE, OTHER, SELFPAY ==
[2025-07-27 11:18] VITALS: BP 175/60
[2025-07-27 11:23] LABS: Glucose - Point of Care 111 mg/dl (70-99)
[2025-07-27 11:37] LABS: Hematocrit 31.7 % (37.0-47.0); Hemoglobin 10.6 g/dL (12.0-16.0); Mean Corp Hgb Conc. 33.4 g/dL (33.0-37.0); Mean Corpuscular Volume 87.8 fL (81.0-99.0); Nucleated Red Blood Cells % 0 %; Platelet Count 225 10^3/uL (130-400); Red Cell Dist. Width 13.2 % (11.5-14.5)
[2025-07-27 11:58] LABS: ALT (SGPT) 23 U/L (0-35); AST (SGOT) 28 U/L (14-36); Albumin 3.9 g/dl (3.5-5.0); Alkaline Phosphatase 85 U/L (38-126); Blood Urea Nitrogen 29 mg/dl (7-17); Calcium 9.0 mg/dl (8.4-10.2); Carbon Dioxide 28 mmol/L (22-30); Chloride 102 mmol/L (98-107); Glucose 91 mg/dl (70-99); Potassium 3.4 mmol/L (3.5-5.1); Sodium 136 mmol/L (135-145); Total Protein 6.2 g/dl (6.3-8.2); eGFR > 60.00
[2025-07-27 12:00] VITALS: BP 154/82
[2025-07-27 12:53] VITALS: BMI 23.7
[2025-07-27 13:28] LABS: Glucose - Point of Care 34 mg/dl (70-99)
[2025-07-27] MEDS: DEXTROSE 50% SYRINGE 25 GRAMS IV (13:29)
[2025-07-27 13:43] LABS: Glucose - Point of Care 182 mg/dl (70-99)
--- NOTE | 2025-07-27 13:44 | ED.GENMED ---
History of Present Illness
General
Chief Complaint: Blood Sugar Problem
Source: patient
Exam Limitations: none
Time Seen by Provider: 07/27/25 12:12
Nursing documentation reviewed up to this point in time: agreed with
History of Present Illness
History of Present Illness:
84-year-old female with history as noted presents to the ER for evaluation after syncopal event. Patient was apparently going into the garage to do some laundry. She says that she felt her legs feel weak underneath her and she apparently collapsed
and she says she hit her head on a nearby table. Her daughter says that she found her collapsed in the garage and had trouble getting her up. She called a neighbor to help get her up and they helped her into a chair and she apparently had loss of
consciousness. EMS was called to the scene. Per EMS on their arrival she was hypoglycemic and she was given oral and IV glucose with improvement. Patient says that she is on regular insulin and she administers her own insulin. She does not take
any oral antihyperglycemic's. She currently takes 11 units of Lantus at nighttime and 6 units NovoLog with meals; no recent adjustments to her regimen. Apparently she usually uses the insulin pen but today had to drawl up the insulin manually with
a syringe because she had run out of her pen. She apparently checked her sugar this morning prior to breakfast and it was low at 52 and so she ate 1 bowl of cereal and then administered her NovoLog and did not eat thereafter. She administered the
insulin around 8:30 AM. Here in the emergency room she says she feels well, denies feeling dizzy, lightheaded or having any other symptoms since receiving glucose.
Past History
Past History
ED Past Medical History: Cancer (Skin CA), HTN, Hypercholesterolemia, IDDM, Hypothyroidism and Other (Arthritis, TIA, Diverticulitis, Glaucoma, Anemia, )
ED Past Surgical History: Appendectomy, Gynecological (D&C), Orthopedic (Left knee replacement) and Other (Ankush cataracts)
Social History
Tobacco: Former smoker
Alcohol: Occasional
Drug: None
Personal:
Living: alone
Employment: Retired
Review of Systems
Review of Systems
All Other Systems: ROS reviewed and negative except as documented in HPI and ROS
Cardiac: Reports syncope; Denies chest pain
ABD/GI: Denies abdominal pain
Musculoskeletal: Denies neck pain or back pain
Neurological: Reports weakness; Denies headache
Phy Exam
Physical Exam
Physical Exam:
General: Awake, alert, oriented x3; no acute distress
Head: Normocephalic, atraumatic
Eyes: Conjunctiva normal, EOMI
Throat: Airway intact, handling secretions
Neck: Trachea midline, supple without meningismus
Lungs: Clear to auscultation bilaterally, no wheezing, rales, rhonchi
Heart: Regular rate and rhythm, no murmurs, gallops, or rubs
Abd: Soft, non distended, nontender
Neuro: Grossly intact
Skin: Warm and dry
Extremities: No edema in extremities, equal pulses in all extremities
Scores
Heart Failure Risk
Heart Failure Risk Score: Not Applicable
Heart Score for Chest Pain Patients
STEMI patient?: Not applicable
Withdrawal Assessment of Alcohol
Withdrawal Assessment Completed?: Not applicable
Course
Orders/Labs/Results
Orders:
Orders
07/27/25 11:22
Electrocardiogram (*1) Urgent
Reason for Study: Syncope
EKG- Treatment ONCE
07/27/25 11:26
Complete Blood Count/With Diff Urgent
Comprehensive Metabolic Panel Urgent
07/27/25 11:31
CT Head W/o Iv Contrast Urgent
Comment:
Reason For Exam: syncope, left sided head strike, on plavix.
07/27/25 13:22
Dextrose 50%-Water [Dextrose 50% Syringe] 25 grams .ROUTE .[facility]
07/27/25 13:29
Dextrose 50%-Water [Dextrose 50% Syringe] 25 grams IV NOW STA
Abnormal Lab Results
07/27/25 07/27/25 07/27/25
11:21 11:26 13:21
RBC 3.61 L 10^6/uL
(4.20-5.40)
Hgb 10.6 L g/dL
(12.0-16.0)
Hct 31.7 L %
(37.0-47.0)
Absolute Lymphs (auto) 1.1 L 10^3/uL
(1.2-3.4)
Lymphocytes % 20.4 L %
(20.5-51.1)
Monocytes % 10.6 H %
(1.7-9.3)
Potassium 3.4 L mmol/L
(3.5-5.1)
BUN 29 H mg/dl
(7-17)
Total Protein 6.2 L g/dl
(6.3-8.2)
POC Glucose 111 H mg/dl 34 L* mg/dl
(70-99) (70-99)
07/27/25
13:41
RBC
Hgb
Hct
Absolute Lymphs (auto)
Lymphocytes %
Monocytes %
Potassium
BUN
Total Protein
POC Glucose 182 H mg/dl
(70-99)
07/27/25 11:26
07/27/25 11:26
Vital Signs
Initial and Last Documented VS:
Initial Vital Signs
Temp Pulse Resp BP Pulse Ox
36.4 C 67 18 175/60 99
07/27/25 11:18 07/27/25 11:18 07/27/25 11:18 07/27/25 11:18 07/27/25 11:18
Last Documented Vital Signs
Temp Pulse Resp BP Pulse Ox
36.4 C 77 16 154/82 98
07/27/25 11:18 07/27/25 12:15 07/27/25 12:15 07/27/25 12:00 07/27/25 13:49
MDM/Problems Addressed
Differential Diagnosis Includes:
Hypoglycemia, vasovagal, dysrhythmia
MDM/Problems Addressed:
84-year-old female presents for evaluation after syncopal episode associated with hypoglycemia. Received oral and IV glucose for a blood sugar 50 on EMS arrival. Has been feeling much better since. Mildly hypertensive but otherwise normal vitals.
EKG here shows sinus rhythm. She had screening labs sent off including a CBC which shows marginal anemia, CMP which shows no clinically significant abnormalities. Accu-Chek normal on arrival. She says that her glucose was low prior to
administering her initial morning insulin and so she ate some cereal and then administered insulin; she had to draw her insulin up manually today whereas typically she uses insulin pen. CT head given head strike on Plavix. Will monitor glucose
here if stable can likely be discharged. She was given ama crackers to eat.
Patient had another episode of hypoglycemia received D50, given meal tray to eat. Continue to monitor.
CT head no acute abnormalities. Patient awake and alert, glucose normal to slightly high. Continue to monitor.
Blood sugar stable, patient awake and alert, feeling well. Stable for discharge at this point, advised to monitor sugars closely. She has glucose tablets to use as needed for emergencies. Follow-up with her primary physician. All questions
answered.
Chronic conditions affecting care:
Diabetes
*Radiology
Radiology exam reviewed: radiology read reviewed
*Pulse Oximetry
SaO2: 98
Oxygen Mode of Delivery: Room air
Patient hypoxic: no (98%)
*EKG
Interpreted by ED Provider?: Yes
Heart Rate: 64
Rate: normal
Rhythm: sinus
Ottertail: left axis deviation
Interval: normal interval
QRS Pattern: right bundle branch block (Incomplete)
Ischemia: no ischemia
*Critical Care Note
Total Time (30-74mins, 75-104mins- exclusive of procedures): Not Applicable
Data Reviewed
Source: patient, records, family and ambulance crew
ED Attending Note
-
Portions of this chart may have been created with voice recognition software.� Occasional wrong word or��sound alike� substitutions may have occurred due to the inherent limitations of voice recognition software.
Discharge Plan
Departure
Patient Disposition: Home (Routine Discharge)
Date of Disposition: 07/27/25
Time of Disposition: 14:30
Patient with high blood pressure during this ER visit?: Yes
Discharge Problem:
Hypoglycemia
Instructions: Low blood sugar in adults - ED (DC)
Prescriptions:
No Action
rosuvastatin 20 MG tablet
20 mg PO DAILY
clopidogrel [Plavix] 75 mg Tablet
75 mg PO DAILY
ascorbic acid (vitamin C) [Vitamin C] 1,000 mg Tablet
1,000 mg PO DAILY
levothyroxine [Synthroid] 100 mcg tablet
100 mcg PO DAILY
insulin glargine [Basaglar KwikPen U-100 Insulin] 100 unit/mL (3 mL) insulin pen
13 unit SC HS
lisinopril 10 mg tablet
15 mg PO DAILY Qty: 0 0RF
insulin aspart U-100 [Novolog FlexPen U-100 Insulin] 100 unit/mL (3 mL) insulin pen
5 unit SC AC Qty: 5 0RF
Referrals:
Chiquita Do MD [Family Provider, Endocrinology] - Call in 1-3 days for appt
Activity Restrictions/Additional Instructions:
Thank you for visiting the Emergency Department at [facility].
1. Please schedule a follow up appointment as directed. Call first thing tomorrow morning to make an appointment.
2. If indicated, please take your medications as instructed and indicated on discharge paperwork.
3. If any of your symptoms do not improve, or persist, or become more severe within 6-12 hours, please return to the emergency department for further care.
4. Please return to the emergency department if you develop a headache, neck pain/stiffness, fever greater than 100.4F, chest pain, shortness of breath, persistent nausea, vomiting, slurred speech, difficulty walking, numbness/tingling, weakness,
signs of infection or any other symptoms that are worrisome to you.
Please call [phone] if you have any questions.
Interventions
Interventions:
*General Assessment Last Done: 07/27/25 11:18
*Neglect/Abuse Screening Last Done: 07/27/25 11:18
ED- Neurological Assessment Last Done: 07/27/25 12:53
Discharge Date and Time
Print Language: GIBRALTARIAN
[2025-07-27 14:35] LABS: Glucose - Point of Care 117 mg/dl (70-99)
== END 2025-07-27 14:58 | disposition home or self-care (01) ==
LOC: EMR 11:15
PROVIDERS: EMERGENCY PHYSICIAN Emergency Medicine; FAMILY PHYSICIAN Internal Medicine Endocrinology, Diabetes & Metabolism
DX: E10.649 Type 1 diabetes mellitus with hypoglycemia without coma (principal); E16.A2 Hypoglycemia level 2; I45.10 Unspecified right bundle-branch block; D64.9 Anemia, unspecified; I10 Essential (primary) hypertension; E78.00 Pure hypercholesterolemia, unspecified; H40.9 Unspecified glaucoma; E03.9 Hypothyroidism, unspecified; M19.90 Unspecified osteoarthritis, unspecified site; Z79.02 Long term (current) use of antithrombotics/antiplatelets; Z79.4 Long term (current) use of insulin; Z86.73 Personal history of transient ischemic attack (TIA), and cerebral infarction without residual deficits; Z87.891 Personal history of nicotine dependence; Z85.828 Personal history of other malignant neoplasm of skin; Z96.652 Presence of left artificial knee joint
CPT/HCPCS: 99284; 96374; 70450; 80053; 82962; 85025; 93005